=== PATIENT | female | born 1960 | race African-American/Black ===

== ENCOUNTER 2017-12-16 10:56 | Emergency (ER) | payer OTHER, MEDICAID ==
[~2017-12-16] VITALS: Ht 157.5 cm; Wt 81.6 kg
[~2017-12-16 10:56] MED LIST: BENA20TA14; GABA100C9; GLYB5TAB8; LORA-352; METF-370; TRIA0.02
[2017-12-16 14:34] VITALS: BP 149/61
== END 2017-12-16 14:41 | disposition home or self-care (01) ==
LOC: ER 10:56
DX: S93.402A Sprain of unspecified ligament of left ankle, initial encounter (principal); S93.602A Unspecified sprain of left foot, initial encounter; E11.22 Type 2 diabetes mellitus with diabetic chronic kidney disease; E78.5 Hyperlipidemia, unspecified; I12.9 Hypertensive chronic kidney disease with stage 1 through stage 4 chronic kidney disease, or unspecified chronic kidney disease; N18.9 Chronic kidney disease, unspecified; I25.10 Atherosclerotic heart disease of native coronary artery without angina pectoris; F17.210 Nicotine dependence, cigarettes, uncomplicated; Z79.84 Long term (current) use of oral hypoglycemic drugs; Z79.899 Other long term (current) drug therapy; X58.XXXA Exposure to other specified factors, initial encounter; Y93.89 Activity, other specified; Y92.89 Other specified places as the place of occurrence of the external cause; Y99.8 Other external cause status
CPT/HCPCS: 29125; 29515; 73610; 73630

== ENCOUNTER 2024-06-09 17:49 | Inpatient (IN) | payer MEDICAID, OTHER ==
[~2024-06-09] VITALS: Ht 158.8 cm; Wt 97.8 kg
[~2024-06-09 17:49] MED LIST changes: +BENA-36; -BENA20TA14; +GABA-1308; -GABA100C9; -LORA-352; +LORA10TA6
[2024-06-09] MEDS: ONDANSETRON HCL 4 MG/2 ML VIAL IV ONE (18:30)
[2024-06-09] MEDS: SODIUM CHLORIDE 0.9% 500 ML IV ONE (18:30)
[2024-06-09 18:44] VITALS: PULSE 71; RESP 20; O2SAT 94
--- NOTE | 2024-06-09 18:48 | ED.PDOC ---
HPI (NEURO) HPI Comments This is a 64-year-old female who comes to the ED via wheelchair with chief complaint of generalized weakness. She has a past medical history relevant for end-stage renal disease since five years ago likely due to uncontrolled type 2 diabetes diagnosed in 1999, hyperintensity, gout, total thyroidectomy performed 10 years ago, history of six strokes last one was nine months ago, history of a cardiac arrest around four months ago. Patient lives in [place] with her son. She had hemodialysis today with [facility]. Patient just go [facility] one week ago to visit her sister, since then they state that she has been experiencing worsening generalized weakness, lethargy, low appetite, poor fluid intake, she has also been experiencing chest pain, mild severity, localized in the left chest, nonradiating, with no relieving or exacerbating factors. She also mentions having dizziness which is worse with change of positions, as well as lightheadedness, generalized weakness and numbness, sister also stated that she has been having slurred speech and episodes of confusion, blurry vision. Patient is able to answer all of my questions, she states being compliant with her medication and taking Plavix and aspirin on a daily basis. Patient currently denies any abdominal pain, vomiting, diarrhea, constipation. Chief Complaint: General Weakness Time Seen by MD: 18:22 Primary Care Provider: OUT OF AREA Reviewed Notes: Nurses Notes Information Source: Patient, Relative (Sibling) Mode of Arrival: Wheelchair Severity: Severe Dizziness/Weakness Severity: Unable to do activities Headache Severity: Moderate Timing: Days Duration: Since onset Headache Quality: Throbbing Headache Location: Generalized Weakness Location: Generalized Numbness Location: Generalized Onset: At rest, With light exertion Symptoms: Faintness, Vertigo, Imbalance, Weakness, Numbness, Change of vision, Slurred speech History of: CVA, DM, Hypertension Associated Signs and Symptoms: Headache, Nausea, Chest Pain, Altered Mental Status Past Medical History PAST MEDICAL HISTORY: CAD, CKF, CVA, DM, ESRD, High Lipids, HTN Surgical History: , Tonsillectomy Surgical History (Other): Last angiogram with stent placement was performed on 04/28/2024 VARNISH MAKER HELPER History: No Pertinent VARNISH MAKER HELPER History Family History Family History: No family hx of Cancer, No family hx of DM, No family hx of Heart jana, No family hx of HTN Social History Smoker: Cigarettes, Greater Than 1 Pack/Day Alcohol: Occasionally Drugs: Denies Drug Use Lives In: Home Constitutional: reports: fatigue, malaise, weakness; denies: chills, diaphoresis, fever, sweats, others EENTM: reports: blurred vision; denies: double vision, ear bleeding, ear discharge, ear drainage, ear pain, ear ringing, eye pain, eye redness, hearing loss, mouth pain, mouth swelling, nasal discharge, nose bleeding, nose congestion, nose pain, photophobia, tearing, throat pain, throat swelling, voice changes, others Respiratory: reports: SOB with excertion; denies: cough, hemoptysis, orthopnea, SOB at rest, shortness of breath, stridor, wheezing, others Cardiovascular: reports: chest pain, Dyspnea on exertion, lightheadedness; denies: dizzy spells, diaphoresis, edema, irregular heart beat, left arm pain, palpitations, PND, syncope, others Gastrointestinal: reports: poor appetite, poor fluid intake; denies: abdomen distended, abdominal pain, blood streaked bowels, constipated, diarrhea, dysphagia, difficulty swallowing, hematemesis, melena, nausea, rectal bleeding, rectal pain, vomiting, others Genitourinary: denies: abnormal vagina bleeding, burning, dyspareunia, dysuria, flank pain, frequency, hematuria, incontinence, pain, , vagina di scharge, urgency, others Neurological: reports: dizziness, fainting, headache, left sided numbness, right sided numbness, speech problems, weakness; denies: left sided weakness, numbness, paresthesia, pre-existing deficit, right sided weakness, seizure, tingling, tremors, others Musculoskeletal: reports: back pain; denies: gout, joint pain, joint swelling, muscle pain, muscle stiffness, neck pain, others Integumetry: denies: bruises, change in color, change in hair/nails, dryness, laceration, lesions, lumps, rash, wounds, others Allergic/Immunocompromised: denies: Difficulty Healing, Frequent Infections, Hives, Itching, others Hematologic/Lymphatic: denies: anemia, blood clots, easy bleeding, easy bruising, swollen glands, others Endocrine: denies: excessive hunger, excessive sweating, excessive thirst, excessive urination, flushing, intolerance to cold, intolerance to heat, unexplained weight gain, unexplained weight loss, others Psychiatric: reports: anxiety; denies: bipolar disorder, depression, hopeless, panic disorder, schizophrenia, sleepless, suicidal, others Physical Exam General Appearance: Obese, Severe Distress HEENT: Normal ENT Inspection, Pharynx Normal, TMs Normal Neck: Full Range of Motion, Non-Tender, Normal, Normal Inspection Respiratory: Chest Non-Tender, Lungs Clear, No Accessory Muscle Use, No Respiratory Distress, Normal Breath Sounds Cardiovascular: No Edema, No JVD, No Murmur, No Gallop, Normal Peripheral Pul ses, Regular Rate/Rhythm Breast Exam: Deferred Gastrointestinal: No Organomegaly, Non Tender, No Pulsatile Mass, Normal Bowel Sounds, Soft Genitalia: Deferred Pelvic: Deferred Rectal: Deferred Extremities: No calf tenderness, Normal capillary refill, Normal inspection, Normal range of motion, Non-tender, Pedal edema Neurologic: shop mechanic II-XII nml as Tested, Disoriented, Dizziness, Fainting, Headache, Motor Weakness, Normal Affect, Normal Mood, No Sensory Deficits, R/L Numbness, Speech Problem Cerebellar Function: NOT DONE Reflexes: NOT DONE Skin: Dry, Normal Color, Warm Lymphatic: No Adenopathy Was a procedure done? Was a procedure done?: No Differential Diagnosis (SZ) CVA: CVA, Electrolyte Imbalance, Encephalopathy, TIA General Weakness: Dehydration, Myocardial infarction, Renal failure, Vertigo: central, Vertigo: peripheral X-Ray, Labs, Meds, VS Vital Signs Date Time Temp Pulse Resp B/P (MAP) Pulse Ox O2 Delivery O2 Flow Rate FiO2 06/09/24 18:44 71 20 94 Room Air* 0 21 06/09/24 18:42 98.7 71 20 107/44 (65) 93 98.7 06/09/24 18:25 69 06/09/24 18:05 72 06/09/24 17:52 98.3 73 20 87/35 (52) 99 89/39 (56) Lab Test 06/09/24 19:22 06/09/24 17:58 Range/Units White Blood Count 5.8 4.4-10.8 10^3/uL Red Blood Count 2.02 L 4.0-5.20 10^6/uL Hemoglobin 5.7 *L 12.2-16.2 g/dL Hematocrit 17.6 L 36.0-46.0 % Mean Corpuscular Volume 87.1 80.0-100.0 fL Mean Corpuscular Hemoglobin 28.2 28.0-32.0 pg Mean Corpuscular Hemoglobin Concent 32.3 32.0-36.0 g/dL Red Cell Distribution Width 17.7 H 11.8-14.3 % Platelet Count 202 140-450 10^3/uL Mean Platelet Volume 7.6 6.9-10.8 fL Neutrophils (%) (Auto) 65.1 37.0-80.0 % Lymphocytes (%) (Auto) 15.9 10.0-50.0 % Monocytes (%) (Auto) 6.9 0.0-12.0 % Eosinophils (%) (Auto) 11.5 H 0.0-7.0 % Basophils (%) (Auto) 0.6 0.0-2.0 % Neutrophils # (Auto) 3.8 1.6-8.6 10 ^3/uL Lymphocytes # (Auto) 0.9 0.4-5.4 10 ^3/uL Monocytes # (Auto) 0.4 0-1.3 10 ^3/uL Eosinophils # (Auto) 0.7 0-0.8 10 ^3/uL Basophils # (Auto) 0 0-0.2 10 ^3/uL Nucleated Red Blood Cells 0.0 % Sodium Level Pending Potassium Level Pending Chloride Level Pending Carbon Dioxide Level Pending Anion Gap Pending Blood Urea Nitrogen Pending Creatinine Pending Glomerular Filtration Rate Calc Pending BUN/Creatinine Ratio Pending Serum Glucose Pending Calcium Level Pending Troponin I High Sensitivity Pending POC Glucose 179 H 70-106 mg/dl Current Medications Medications (Trade) Dose Ordered Sig/Hilary Route Start Time Stop Time Status Last Admin Sodium Chloride 500 ml @ 500 mls/hr Q1H ONCE IV 06/09/24 18:30 06/09/24 19:29 DC 06/09/24 18:30 Ondansetron HCl (Zofran) 4 mg ONCE ONCE IV 06/09/24 18:30 06/09/24 18:31 DC 06/09/24 18:30 On my initial examination, patient appears to be in severe distress due to generalized weakness, her blood pressure is 87/35 with a map of 52, she is experiencing chest pain, headaches, slurred speech, fluctuations in mentation. We will order CBC, BNP, UA, head CT, chest x-ray, troponins, EKG. We will also prescribe Zofran, IV fluids with NS at 500 bolus, we will continue to reassess. Patient's hemoglobin came back at 5.6, we ordered 2 units of RBC packs, patient will be admitted to for further management and monitoring. Images Reviewed?: Images reviewed and evaluated by me Time of 1ST Reevaluation: 18:37 Reevaluation 1ST: Unchanged Patient Education/Counseling: Diagnosis, Treatment Family Education/Counseling: Diagnosis, Treatment Departure 1 Departure Time of Disposition: 19:50 Impression: Primary Impression: Severe anemia Additional Impressions: CVA (cerebrovascular accident) TIA (transient ischemic attack) ACS (acute coronary syndrome) ESRD (end stage renal disease) on dialysis Type 2 diabetes mellitus Essential hypertension Hypothyroidism Hyperlipidemia Disposition: ADMITTED INPATIENT Condition: Guarded Critical Care Note Critical Care Time?: No Stability Stability form required: No Heart Score Heart Score: Heart Score Response (Comments) Value History Moderate Suspicious 1 EKG Repolarization Disturb 1 Age >65 2 Risk Factors >3 or Hx ASHD 2 Troponin N/A 0 Total 6 EDWIN GIL RESIDENT Jun 09, 2024 18:48
[2024-06-09 19:15] VITALS: RESP 20; O2SAT 94
--- NOTE | 2024-06-09 19:17 | DVH ---
CHEST RADIOGRAPH Indication:sob Technique: Single frontal view of the chest was obtained Comparison: None FINDINGS: Lines and Tubes: None Lungs: No focal consolidation. Mild interstitial prominence. Suture material is noted over the right lower lung zone. Indistinctness of bilateral hemidiaphragm. Pleura: No effusion. No pneumothorax. Cardiomediastinal contours: Mild cardiomegaly. Bones: No acute osseous abnormality. Chronic resorption of the right distal clavicle. Surgical clips are noted over the right lower neck. IMPRESSION: Mild cardiomegaly with pulmonary vascular congestion and possible trace bilateral pleural effusions.
[2024-06-09 19:40] LABS: Basophils # (auto) 0 10 ^3/uL (0-0.2); Eosinophils # (auto) 0.7 10 ^3/uL (0-0.8); Hematocrit 17.6 % (36.0-46.0); Lymphocytes # (auto) 0.9 10 ^3/uL (0.4-5.4); Monocytes # (auto) 0.4 10 ^3/uL (0-1.3); Red Blood Cells 2.02 10^6/uL (4.0-5.20)
[2024-06-09 19:41] LABS: Basophils % (auto) 0.6 % (0.0-2.0); Eosinophils % (auto) 11.5 % (0.0-7.0); Lymphocytes % (auto) 15.9 % (10.0-50.0); Mean Corpuscular Hemoglobin 28.2 pg (28.0-32.0); Mean Corpuscular Hgb Conc. 32.3 g/dL (32.0-36.0); Mean Corpuscular Volume 87.1 fL (80.0-100.0); Monocytes % (auto) 6.9 % (0.0-12.0); Neutrophils # (auto) 3.8 10 ^3/uL (1.6-8.6); Neutrophils % (auto) 65.1 % (37.0-80.0); Platelet Count (auto) 202 10^3/uL (140-450); Red Cell Distribution Width 17.7 % (11.8-14.3); White Blood Cell 5.8 10^3/uL (4.4-10.8)
[2024-06-09 19:45] LABS: Hemoglobin 5.7 g/dL (12.2-16.2)
[2024-06-09 20:03] LABS: Chloride 96 mmol/L (98-107); Potassium 3.8 mmol/L (3.5-5.1); Sodium 136 mmol/L (136-145)
[2024-06-09 20:04] LABS: Anion Gap 7 (5-15); Carbon Dioxide 33 mmol/L (20-31)
[2024-06-09 20:05] LABS: Calcium 9.4 mg/dL (8.7-10.4)
[2024-06-09 20:09] LABS: BUN/Creatinine Ratio 3.8 (10.0-20.0); Blood Urea Nitrogen 20 mg/dL (9-23); Glucose 155 mg/dL (74-106)
--- NOTE | 2024-06-09 21:07 | DVH ---
EXAM: CT HEAD WITHOUT CONTRAST INDICATION: ams, slurred speech TECHNIQUE: CT of the head without intravenous contrast. Radiation Dose Information: CT Dose: CTDI volume is 58.08 mGy. Dose-length product is 930.95 mGy*cm The dose indicators for CT are the volume Computed Tomography (CT) Dose Index (CTDIvol) and the Dose Length Product (DLP), and are measured in units of mGy and mGy-cm, respectively. These indicators are not patient dose, but values generated from the CT scanner acquisition factors. The report includes radiation exposure data for exposures received during this examination. COMPARISON: None FINDINGS: There is no evidence of acute intracranial hemorrhage, extra-axial collection, mass effect, midline s hift, herniation or hydrocephalus. 8.24 mm dural-based calcification posterior right parietal lobe. Can not exclude small meningioma. The ventricles, sulci and cisterns are age appropriate. The chavez-white differentiation is intact. Patchy periventricular and subcortical white matter hypoattenuation is nonspecific but may be related to small vessel ischemic disease. The visualized paranasal sinuses and mastoid air cells are clear. The surrounding soft tissues and osseous structures are unremarkable. IMPRESSION: 1. No acute intracranial hemorrhage. 2. Small 8.24 mm dural based calcification posterior right parietal lobe. May represent a small granu boy or dural-based meningioma.
[2024-06-09] MEDS ORDERED: ACETAMINOPHEN 325 MG TAB PO PRN (21:45)
[2024-06-09] MEDS ORDERED: HYDROcodone-ACET 5/325MG TAB PO PRN (21:45)
[2024-06-09] MEDS ORDERED: NITROGLYCERIN 0.4 MG SL TAB SL PRN (21:45)
[2024-06-09] MEDS ORDERED: ONDANSETRON HCL 4 MG/2 ML VIAL IV PRN (21:45)
--- NOTE | 2024-06-09 22:12 | DVHHPRES ---
History of Present Illness Resident Creating Document: AMNA COOPER RESIDENT History of Present Illness This is a 64-year-old female past medical history of hypertension, hyperlipidemia, CAD with s/p PTCA, CKD on hemodialysis, type 2 diabetes mellitus, CHF, gout, hypothyroidism, rt upper extremity DVT presented to the ED via wheelchair with chief complaint of generalized weakness and nausea for 4 days prior to this admission. According to the patient she has been having black tarry stool for last 2 days, also noticed fresh blood in her stool 3 or 4 times and today she has 3 bowel movement which is black and semisolid in consistency. She has a past medical history relevant for end-stage renal disease since five years ago likely due to uncontrolled type 2 diabetes diagnosed in 1999, gout, total thyroidectomy performed 10 years ago, history of six strokes last one was nine months ago, history of a cardiac arrest around four months ago and Left heart catheterization with 1 stent in May 01, 2024 and was on was continuing aspirin and Plavix since then. Patient lives in [place] with her son. She had hemodialysis today with [facility]. Patient [facility] one week ago to visit her sister, since then she has been experiencing worsening generalized weakness, lethargy, low appetite, poor fluid intake, she has also been experiencing chest pain, sharp in nature 4/10, localized in the left chest, nonradiating, with no relieving or exacerbating factors. She also mentions having dizziness which is worse with change of positions, as well as lightheadedness, generalized weakness and numbness, sister also stated that she has been having slurred speech and episodes of confusion, blurry vision. Patient currently denies any abdominal pain, vomiting, diarrhea, constipation. PCP: Radhika Waldron Coat Finisher: Dr. Varghese in [place] Building Mover: Antwan Zambrano in [facility] [place] Cardiovascular: HTN, hyperipidemia Past Medical History Hypertension, hyperlipidemia, CAD with s/p PTCA, CKD on hemodialysis, type 2 diabetes mellitus, CHF, gout, hypothyroidism, rt upper extremity DVT Past Surgical History PTCA, frequent surgery in the upper extremity for AV fistula -13 times Family History: None Smoke: No ALCOHOL: none Drugs: None Lives: with Family Review of Systems Constitutional: Yes: Weakness; No: Fever, Chills, Sweats, Malaise, Other Eyes: No: Pain, Vision change, Conjunctivae inflammation, Eyelid inflammation, Other, Redness ENT: No: Ear pain, Ear discharge, Nose pain, Nose discharge, Nose congestion, Mouth pain, Mouth swelling, Throat pain, Throat swelling, Other Respiratory: Shortness of breath; No: Cough, Dry, SOB with excertion, Wheezing, Hemoptysis, Pleuritic Pain, Sputum, Wheezing, Other Cardiovascular: Chest Pain Gastrointestinal: Nausea, Diarrhea, Melena, Hematochezia Genitourinary: No Dysuria, No Frequency, No Incontinence, No Hematuria, No Retention, No Other Musculoskeletal: No: other, neck pain, shoulder pain, arm pain, back pain, hand pain, leg pain, foot pain Skin: No: Rash, Lesions, Jaundice, Bruising, Other Neurological: No: Weakness, Numbness, Incoordination, Change in speech, Confusion, Seizures, Other Allergies: Coded Allergies: NO KNOWN ALLERGIES (Unverified , 07/30/11) Medications Current Medications Medications Dose Ordered Sig/Hilary Route Start Time Stop Time Status Last Admin Dose Admin Acetaminophen 325 mg Q4HP PRN PO 06/09/24 21:45 UNV Acetaminophen/ Hydrocodone Bitart 1 tab Q4HP PRN PO 06/09/24 21:45 UNV Ondansetron HCl 4 mg Q4HP PRN IV 06/09/24 21:45 UNV Nitroglycerin 0.4 mg Q5MINP PRN SL 06/09/24 21:45 UNV Morphine Sulfate 2 mg Q30M PRN IV 06/09/24 21:45 UNV Exam Vital Signs Vital Signs Date Time Temp Pulse Resp B/P (MAP) Pulse Ox O2 Delivery O2 Flow Rate FiO2 06/09/24 20:01 65 06/09/24 20:00 98.6 20 125/42 (69) 93 98.6 06/09/24 19:15 Room Air* 0 21 General Appearance: Alert, Oriented X3, Cooperative, mild distress HEENT: Atraumatic, PERRLA, EOMI, Mucous membr. moist/pink Respiratory: Clear to auscultation, Normal air movement Cardiovascular: Regular rate, Normal S1, Normal S2, No murmurs Abdominal: Normal bowel sounds, Soft, No tenderness, No hepatospenomegaly, No masses Extremities: No clubbing, No cyanosis, No edema, Normal pulses, No tenderness/swelling Skin: No rashes, No breakdown, No significant lesion Neuro: Normal speech, Strength at 5/5 X4 ext, Normal tone, Sensation intact Psych/Mental Status: Mental status NL, Mood NL Labs/Xrays Labs Test 06/09/24 20:49 06/09/24 19:22 06/09/24 17:58 Range/Units Troponin I High Sensitivity 7 </=34 ng/L White Blood Count 5.8 4.4-10.8 10^3/uL Red Blood Count 2.02 L 4.0-5.20 10^6/uL Hemoglobin 5.7 *L 12.2-16.2 g/dL Hematocrit 17.6 L 36.0-46.0 % Mean Corpuscular Volume 87.1 80.0-100.0 fL Mean Corpuscular Hemoglobin 28.2 28.0-32.0 pg Mean Corpuscular Hemoglobin Concent 32.3 32.0-36.0 g/dL Red Cell Distribution Width 17.7 H 11.8-14.3 % Platelet Count 202 140-450 10^3/uL Mean Platelet Volume 7.6 6.9-10.8 fL Neutrophils (%) (Auto) 65.1 37.0-80.0 % Lymphocytes (%) (Auto) 15.9 10.0-50.0 % Monocytes (%) (Auto) 6.9 0.0-12.0 % Eosinophils (%) (Auto) 11.5 H 0.0-7.0 % Basophils (%) (Auto) 0.6 0.0-2.0 % Neutrophils # (Auto) 3.8 1.6-8.6 10 ^3/uL Lymphocytes # (Auto) 0.9 0.4-5.4 10 ^3/uL Monocytes # (Auto) 0.4 0-1.3 10 ^3/uL Eosinophils # (Auto) 0.7 0-0.8 10 ^3/uL Basophils # (Auto) 0 0-0.2 10 ^3/uL Nucleated Red Blood Cells 0.0 % Sodium Level 136 136-145 mmol/L Potassium Level 3.8 3.5-5.1 mmol/L Chloride Level 96 L 98-107 mmol/L Carbon Dioxide Level 33 H 20-31 mmol/L Anion Gap 7 5-15 Blood Urea Nitrogen 20 9-23 mg/dL Creatinine 5.29 H 0.550-1.02 mg/dL Glomerular Filtration Rate Calc 8 >90 mL/min BUN/Creatinine Ratio 3.8 L 10.0-20.0 Serum Glucose 155 H 74-106 mg/dL Calcium Level 9.4 8.7-10.4 mg/dL POC Glucose 179 H 70-106 mg/dl Assessment/Plan Assessment/Plan Assessment and plan: # Generalized weakness likely due to severe anemia - On admission hemoglobin was 5.7 - Ordered 2 units PRBC - Monitor H/H # Severe anemia likely due to lower GI bleeding - On D/R/E no visible blood is seen and hard black stool in the rectum - ordered CT abdomen pelvis without contrast and FOBT - Patient is NPO - IV Protonix 40 mg b.i.d. - IV normal saline at 60 mL/hour - consulted GI # ESRD on hemodialysis - started hemodialysis 5 years ago and 3 times a week - consulted nephrology [facility] - Monitor BMP # History of coronary artery disease with status post PTCA 6 weeks ago - Continue aspirin and Plavix # History of gout - Continue home meds # Possible subclinical hyperthyroidism - ordered free T3 and T4 Goal of care discussed with the patient for more than 20 minutes full code Plan of treatment discussed with Dr. Juan Plan discussed with: Patient, Other My Orders Orders - AMNA COOPER RESIDENT Procedure Category Date Status Time Admit ADMIT 06/09/24 Transmitted 21:35 Allergies GRECIA 06/09/24 In Process 21:35 Code Status CODE 06/09/24 Transmitted 21:35 Renal DIET 06/10/24 Transmitted Standard(2gna,3gk,Lopho) Breakfast Oxygen Per Hour RT 06/09/24 Transmitted 21:35 Acetaminophen Tablet PHA 06/09/24 In Process (Tylenol Tablet) 21:45 Hydrocodone-Acet PHA 06/09/24 In Process 5/325mg Tab (Ferguson 21:45 Ondansetron Hcl PHA 06/09/24 In Process (Zofran) 21:45 Complete Blood Count LAB 06/10/24 Verified 04:00 Comprehensive LAB 06/10/24 Verified Metabolic Panel 04:00 Pt Request For Service PT 06/09/24 Logged 21:35 Nitroglycerin PHA 06/09/24 In Process Sublingual (Ntrostat 21:45 Morphine Sulfate PHA 06/09/24 In Process Injection 21:45 Oxygen By Nasal RT 06/09/24 Transmitted Cannula 21:35 Stat Ekg For Chest GRECIA 06/09/24 In Process Pain 21:35 Notify Of Changes GRECIA 06/09/24 In Process From Base 21:35 Forming Tube Selector For [facility] 06/09/24 In Process 24 Hours 21:35 Emergency Dysrhythmia [facility] 06/09/24 In Process Protocol 21:35 Rhythm Strips Once GRECIA 06/09/24 In Process Every Shift 21:35 Packedcells -Active BBK 06/09/24 Logged Bleeding 22:02 B-Type Natriuretic LAB 06/09/24 Logged Peptide 22:07 Hemoglobin A1c LAB 06/09/24 Logged 22:07 Thyroid Stimulating LAB 06/09/24 Logged Hormone 22:07 Vitamin B12 LAB 06/09/24 Logged 22:07 Vitamin D, 25-Hydroxy LAB 06/09/24 Logged 22:07 Echo 2d Mode Cardiac US 06/09/24 Logged DOP 22:07 Stool Wbc LAB 06/09/24 Transmitted 22:10 Stool Bacterial JOSHUA 06/09/24 Uncollected Culture 22:10 Stool Occult Blood LAB 06/09/24 Transmitted 22:10 Clostridium Difficile JOSHUA 06/09/24 Uncollected Toxin 22:10 Date of Service: Jun 09, 2024 Billing Provider: KEM JUAN MD Common Visit Codes: 90854-[id number] INP/OBS CARE (HIGH) Secondary Visit Codes: 83359-[id number] CARE PLAN 30 MINUTES AMNA COOPER RESIDENT Jun 09, 2024 22:12 KEM JUAN MD Jun 10, 2024 08:59
[2024-06-10] VITALS (16 sets, daily range): BP systolic 92–137; BP diastolic 42–72; PULSE 60–83; RESP 14–21; TEMP 97.7–98.7; O2SAT 95–100
[2024-06-10 00:20] LABS: INR 1.08 (0.9-1.15); Partial Thromboplastin Time 23.9 SEC (24.5-34.5); Prothrombin Time 11.4 sec (9.3-11.8)
[2024-06-10] MEDS: SODIUM CHLORIDE 0.9% 1,000 ML IV SCH (01:30)
[2024-06-10] MEDS: PANTOPRAZOLE 40 MG/10 ML VIAL INJ IV ONE (02:01)
--- NOTE | 2024-06-10 09:09 | ECG ---
[facility] Test Date: 2024-06-09 Test Time: 18:05:02 Pat Name: KAMILA ROMERO Department: ER Room: 0292T Gender: F Compounder Helper: POOJA : 1960 Requested By: EDWIN DE LOS SANTOS Order Number: [id number] Reading MD: Adams Acharya Measurements Intervals [place] Rate: 72 P: 55 NM: 159 QRS: 45 QRSD: 100 T: 38 QT: 427 QTc: 468 Interpretive Statements Sinus rhythm Paired ventricular premature complexes Low voltage, precordial leads Electronically Signed On 06-11-2024 14:55:50 PDT by Adams Acharya Please click the below link to view image of tracing.
[2024-06-10] MEDS: PANTOPRAZOLE 40 MG/10 ML VIAL INJ IV SCH (09:42)
[2024-06-10] MEDS: ASPirin 81 mg TAB PO ONE (09:42)
--- NOTE | 2024-06-10 09:54 | DVH ---
CT ABDOMEN AND PELVIS WITHOUT CONTRAST CLINICAL HISTORY: possible lower GI bleeding TECHNIQUE: Multidetector CT of the abdomen was performed from lung bases to pubic symphysis. Imaging was performed without IV contrast. Axial, coronal and sagittal multiplanar reformats were obtained fr om the axial data set by the technologist. Radiation optimization: All CT scans at this facility use at least one of these dose optimization ran hniques: automated exposure control mA and/or kV adjustment per patient size (includes targeted exam s where dose is matched to clinical indication) or iterative reconstruction. Radiation Dose Information: CT Dose: CTDI volume is 23.67 mGy. Dose-length product is 1350.05 mGy*cm Comparison: None FINDINGS: Evaluation of the abdominal viscera is limited without intravenous contrast. There are several nonspecific subtle hypodense splenic nodules measuring 1.2 cm and 1.5 cm. The live r, gallbladder, pancreas, kidneys, adrenal glands, appear within normal limits. There is no gross evidence of abdominal lymphadenopathy. There is no free fluid or free air. The small and large bowel loops demonstrate normal caliber. There are no pericolonic inflammatory ch anges. Normal appearing appendix is seen in the right lower quadrant abdomen. There is a small hiatal hernia. The stomach otherwise appears grossly unremarkable. There are calcified atherosclerotic changes in the abdominal aorta. The IVC appears within normal li mits. The bladder appears unremarkable. The uterus appears within normal limits. There is no evidence of a pelvic mass or lymphadenopathy. There is no free fluid collection. There is pleural-parenchymal scarring in the bilateral lung bases. There is no acute osseous abnormality. IMPRESSION: 1. There is no acute process in the abdomen and pelvis.. 2. Several nonspecific subtle hypodense splenic nodules measuring up to 1.5 cm. Further evaluation wi th MRI abdomen with contrast is recommended. 3. Small hiatal hernia. HS:Y
--- NOTE | 2024-06-10 10:42 | DVHINCON2 ---
GI Consult Consult Note GI consult note Date of Consultation: 06/10/2024 Chief Complaint: Severe anemia Referring Physician: Dr. Deras H&P: 64-year-old female admitted with generalized weakness dizziness and confusion. Patient lives in [place] and visiting her sister here Patient complains of periumbilical abdominal pain. Patient has nausea, no vomiting Patient has history of GERD, takes Tums as needed. No EGD in past Status post colonoscopy more than 10 years ago Patient takes Plavix and aspirin, last dose yesterday Patient is status post 2 units PRBCs transfused Past Medical History: CAD, CKF, CVA, DM, ESRD, High Lipids, HTN Past Surgical History: , Tonsillectomy Last angiogram with stent placement was performed on 04/28/2024 Social History: Smoker: Cigarettes, Greater Than 1 Pack/Day Alcohol: Occasionally Drugs: Denies Drug Use Lives In: Home Family History: Noncontributory Review of Systems: Constitutional: no fever, chill, weight loss HEENT: no eye pain, no hearing loss, no oral lesion, no scleral icterus Heart: no chest pain, no chest pressure Lung: no cough, no dyspnea with exertion Abdomen: see HPI Physical exam: General: NAD, AAOX3 Chest: lung oleary clear to auscultation Heart: RRR, no murmur Abdomen: Mild tenderness to palpation, +BS Labs: Labs Test 06/09/24 23:20 06/09/24 22:32 06/09/24 19:22 06/09/24 17:58 Range/Units Prothrombin Time 11.4 9.3-11.8 sec Prothrombin Time INR 1.08 0.9-1.15 Activated Partial Thromboplast Time 23.9 L 24.5-34.5 SEC Troponin I High Sensitivity 8 </=34 ng/L Vitamin B12 Level 529 211-911 pg/mL Vitamin D 25-Hydroxy 43.8 30.0-100 ng/mL Thyroid Stimulating Hormone (TSH) 0.27 L 0.55-4.78 uIU/mL Stool Occult Blood Positive Negative Stool Occult Blood Sample #3 Negative Stool for White Cells None seen White Blood Count 5.8 4.4-10.8 10^3/uL Red Blood Count 2.02 L 4.0-5.20 10^6/uL Hemoglobin 5.7 *L 12.2-16.2 g/dL Hematocrit 17.6 L 36.0-46.0 % Mean Corpuscular Volume 87.1 80.0-100.0 fL Mean Corpuscular Hemoglobin 28.2 28.0-32.0 pg Mean Corpuscular Hemoglobin Concent 32.3 32.0-36.0 g/dL Red Cell Distribution Width 17.7 H 11.8-14.3 % Platelet Count 202 140-450 10^3/uL Mean Platelet Volume 7.6 6.9-10.8 fL Neutrophils (%) (Auto) 65.1 37.0-80.0 % Lymphocytes (%) (Auto) 15.9 10.0-50.0 % Monocytes (%) (Auto) 6.9 0.0-12.0 % Eosinophils (%) (Auto) 11.5 H 0.0-7.0 % Basophils (%) (Auto) 0.6 0.0-2.0 % Neutrophils # (Auto) 3.8 1.6-8.6 10 ^3/uL Lymphocytes # (Auto) 0.9 0.4-5.4 10 ^3/uL Monocytes # (Auto) 0.4 0-1.3 10 ^3/uL Eosinophils # (Auto) 0.7 0-0.8 10 ^3/uL Basophils # (Auto) 0 0-0.2 10 ^3/uL Nucleated Red Blood Cells 0.0 % Sodium Level 136 136-145 mmol/L Potassium Level 3.8 3.5-5.1 mmol/L Chloride Level 96 L 98-107 mmol/L Carbon Dioxide Level 33 H 20-31 mmol/L Anion Gap 7 5-15 Blood Urea Nitrogen 20 9-23 mg/dL Creatinine 5.29 H 0.550-1.02 mg/dL Glomerular Filtration Rate Calc 8 >90 mL/min BUN/Creatinine Ratio 3.8 L 10.0-20.0 Serum Glucose 155 H 74-106 mg/dL Hemoglobin A1c < 4.0 <5.7 % A1C Calcium Level 9.4 8.7-10.4 mg/dL B-Type Natriuretic Peptide 152.56 0-100 pg/mL POC Glucose 179 H 70-106 mg/dl Imaging: CT abdomen pelvis IMPRESSION: 1. There is no acute process in the abdomen and pelvis.. 2. Several nonspecific subtle hypodense splenic nodules measuring up to 1.5 cm. Further evaluation with MRI abdomen with contrast is recommended. 3. Small hiatal hernia. Assessment: Severe anemia GI bleed possible Abdominal pain History of GERD Hiatal hernia Plan: Discussed with Dr. Brizuela CBC is pending Transfuse if hemoglobin less than seven Continue Protonix and Zofran Clear liquid diet, advance to full liquid if tolerating Possible plan for EGD in 24-48 hours, Dr. Brizuela on standby if active bleeding Discussed plan with patient, sister at bedside and RN Thank you for this consult Date of Service: Jun 10, 2024 Billing Provider: MUKESH HARVEY Common Visit Codes: CONSULT ONLY Consultation Codes: [id number] CONSULT <60MIN MUKESH HARVEY Jun 10, 2024 10:41
[2024-06-10 11:48] LABS: Basophils # (auto) 0 10 ^3/uL (0-0.2); Basophils % (auto) 0.6 % (0.0-2.0); Eosinophils # (auto) 0.7 10 ^3/uL (0-0.8); Eosinophils % (auto) 12.3 % (0.0-7.0); Hematocrit 27.8 % (36.0-46.0); Hemoglobin 9.3 g/dL (12.2-16.2); Lymphocytes # (auto) 0.9 10 ^3/uL (0.4-5.4); Lymphocytes % (auto) 14.8 % (10.0-50.0); Mean Corpuscular Hemoglobin 28.6 pg (28.0-32.0); Mean Corpuscular Hgb Conc. 33.3 g/dL (32.0-36.0); Mean Corpuscular Volume 85.9 fL (80.0-100.0); Monocytes # (auto) 0.4 10 ^3/uL (0-1.3); Monocytes % (auto) 6.1 % (0.0-12.0); Neutrophils % (auto) 66.2 % (37.0-80.0); Nucleated Red Blood Cells % 0.1 %; Platelet Count (auto) 179 10^3/uL (140-450); Red Blood Cells 3.24 10^6/uL (4.0-5.20); Red Cell Distribution Width 18.7 % (11.8-14.3); White Blood Cell 6.1 10^3/uL (4.4-10.8)
[2024-06-10 12:19] LABS: Alanine Aminotransferase 11 U/L (7-40); Albumin 3.9 g/dL (3.2-4.8); Alkaline Phosphatase 60 U/L (46-116); Anion Gap 6 (5-15); Aspartate Aminotransferase 12 U/L (13-40); BUN/Creatinine Ratio 3.7 (10.0-20.0); Bilirubin, Total 0.5 mg/dL (0.2-1.0); Blood Urea Nitrogen 23 mg/dL (9-23); Calcium 9.3 mg/dL (8.7-10.4); Carbon Dioxide 33 mmol/L (20-31); Chloride 99 mmol/L (98-107); Free T3 1.83 pg/mL (2.3-4.2); Free T4 (Free Thyroxine) 0.97 ng/dL (0.89-1.76); Glucose 129 mg/dL (74-106); Potassium 4.3 mmol/L (3.5-5.1); Sodium 138 mmol/L (136-145); Total Protein 6.2 g/dL (5.7-8.2)
--- NOTE | 2024-06-10 16:13 | DVHINCON2 ---
Date Seen: Jun 10, 2024 Referring Physician MD Sterling Reason for Consultation CAD s/p PTCA, GI bleed History of Present Illness This is a 64 year-old female who presented to the Emergency Room with a chief complain of generalized weakness. Complains of generalized weakness associated with dizziness, some ALOC, periumbilical pain with a lower GI bleed. She is visiting her sister from [place]. Reports undergoing a cardiac catheterization and coronary angiogram status PTCA with stent placement x 1 MARLENA at [facility] in [place], [place] on 04/28/2024. She has been on dual- antiplatelet therapy since with latest intake on 06/10/2024. Follows-up with primary fashion intern, Dr. Zambrano, with last appointment being two weeks ago. A twelve-lead electrocardiogram revealed a sinus rhythm with PVCs. Significant medical history includes coronary artery disease status post PTCA with stent placement x 1DES, insulin dependent diabetes mellitus, end-stage renal disease on hemodialysis, history of CVA/TIA, hypertension, dyslipidemia, thyroid d isease, peripheral neuropathy, hiatal hernia, and morbid obesity. Past Medical History Past medical history reviewed. No other significant than mentioned above. Past Surgical History PTCA with a stent placement x1 MARLENA Right upper arm AV fistula Tonsillectomy Family History Family history reviewed. Social History Denies the use of illicit drugs, alcohol, or tobacco use. Allergies: Coded Allergies: NO KNOWN ALLERGIES (Unverified , 07/30/11) Home Meds Reported Medications [[id number] Mg] (Gabapentin) 100 MG CAP No Conflict Check, MG 03/31/13 [Benazepril Hcl20 Mg] (Benazepril Hcl) 20 MG TAB No Conflict Check, MG 03/31/13 [Metformin Bqg102 Mg] (Metformin Hcl) 500 MG TAB No Conflict Check, MG 03/31/13 [Glyburide5 Mg] (Glyburide) 5 MG TAB No Conflict Check, MG 03/31/13 [Triamcinolone0.025 %] (Triamcinolone Acetonide) 0.025 % CRE No Conflict Check, % 03/31/13 [Daxwkngbxn06 Mg] (Loratadine) 10 MG TAB No Conflict Check, MG 03/31/13 Home Meds Home medications reviewed. Current Medications Current Medications Medications (Trade) Dose Ordered Sig/Hilary Route PRN Reason Start Time Stop Time Status Last Admin Acetaminophen (Tylenol Tablet) 325 mg Q4HP PRN PO MILD PAIN (1-3 PAIN SCALE) 06/09/24 21:45 Acetaminophen/ Hydrocodone Bitart ([place] 5/325MG Tab) 1 tab Q4HP PRN PO MODERATE PAIN (4-6 PAIN SCALE) 06/09/24 21:45 Ondansetron HCl (Zofran) 4 mg Q4HP PRN IV NAUSEA / VOMITING 06/09/24 21:45 Nitroglycerin (Ntrostat Sublingual) 0.4 mg Q5MINP PRN SL FOR CHEST PAIN 06/09/24 21:45 Morphine Sulfate 2 mg Q30M PRN IV FOR CHEST PAIN 06/09/24 21:45 Sodium Chloride 1,000 ml @ 60 mls/hr [id number] IV 06/10/24 01:30 06/10/24 01:30 Pantoprazole Sodium (Protonix) 40 mg BID IV 06/10/24 10:00 06/10/24 09:42 Aspirin 81 mg DAILY PO 06/11/24 10:00 06/10/24 11:27 DC Review of Systems Constitutional: Generalized weakness Ears, Nose, & Throat: No symptom reported Eyes: No symptom reported Neurological: Disorientation, dizziness Pulmonary/Respiratory: No symptom reported Cardiovascular: No symptom reported Gastrointestinal: Lower GI bleed Genitourinary: No symptom reported Musculoskeletal: No symptom reported Skin: No symptom reported Psychiatric: No symptom reported Endocrine: No symptom reported Hemotologic/Lymphatic: No symptom reported Vital Signs Vital Signs Date Time Temp Pulse Resp B/P (MAP) Pulse Ox O2 Delivery O2 Flow Rate FiO2 06/10/24 12:33 98.1 74 16 120/53 (75) 96 98.1 06/10/24 08:00 Nasal Cannula* 3 32 Physical Exam General Appearance: Cooperative. Well developed. Morbidly obese. In no acute distress Head Exam: Normal inspection Neck Exam: Normal inspection. Non-tender. Normal alignment Pulmonary/Respiratory: Chest non-tender. Crackles to bilateral breath sounds Cardiovascular/Chest: Regular rate and rhythm. S1, S2. Sinus rhythm with PVCs. No murmurs. No JVD. Peripheral Pulses: 2+ Radial (R). 2+ Radial (L). 2+ Pedal (R). 2+ Pedal (L) Abdominal Exam: Normal bowel sounds. Soft. Nontender. No hepatospenomegaly. No masses Ankle Exam: Negative ankle edema Lower extremities: Negative lower extremity edema Neuro/Mental Status: A&O x3. Coherent but very poor historian Thoughts/Psych: Normal thought pattern. Appropriate mood and affect. Good judgement and insight Appearance: In no acute distress Skin Exam: Normal inspection. Pale color. Warm. Dry Labs/Diagnostic Data Labs Test 06/10/24 11:10 06/09/24 23:20 06/09/24 22:32 06/09/24 19:22 Range/Units White Blood Count 6.1 4.4-10.8 10^3/uL Red Blood Count 3.24 L 4.0-5.20 10^6/uL Hemoglobin 9.3 #L 12.2-16.2 g/dL Hematocrit 27.8 #L 36.0-46.0 % Mean Corpuscular Volume 85.9 80.0-100.0 fL Mean Corpuscular Hemoglobin 28.6 28.0-32.0 pg Mean Corpuscular Hemoglobin Concent 33.3 32.0-36.0 g/dL Red Cell Distribution Width 18.7 H 11.8-14.3 % Platelet Count 179 140-450 10^3/uL Mean Platelet Volume 7.5 6.9-10.8 fL Neutrophils (%) (Auto) 66.2 37.0-80.0 % Lymphocytes (%) (Auto) 14.8 10.0-50.0 % Monocytes (%) (Auto) 6.1 0.0-12.0 % Eosinophils (%) (Auto) 12.3 H 0.0-7.0 % Basophils (%) (Auto) 0.6 0.0-2.0 % Neutrophils # (Auto) 4.0 1.6-8.6 10 ^3/uL Lymphocytes # (Auto) 0.9 0.4-5.4 10 ^3/uL Monocytes # (Auto) 0.4 0-1.3 10 ^3/uL Eosinophils # (Auto) 0.7 0-0.8 10 ^3/uL Basophils # (Auto) 0 0-0.2 10 ^3/uL Nucleated Red Blood Cells 0.1 % Sodium Level 138 136-145 mmol/L Potassium Level 4.3 3.5-5.1 mmol/L Chloride Level 99 98-107 mmol/L Carbon Dioxide Level 33 H 20-31 mmol/L Anion Gap 6 5-15 Blood Urea Nitrogen 23 9-23 mg/dL Creatinine 6.15 H 0.550-1.02 mg/dL Glomerular Filtration Rate Calc 7 >90 mL/min BUN/Creatinine Ratio 3.7 L 10.0-20.0 Serum Glucose 129 H 74-106 mg/dL Calcium Level 9.3 8.7-10.4 mg/dL Total Bilirubin 0.5 0.2-1.0 mg/dL Aspartate Amino Transferase (AST) 12 L 13-40 U/L Alanine Aminotransferase (ALT) 11 7-40 U/L Alkaline Phosphatase 60 46-116 U/L Total Protein 6.2 5.7-8.2 g/dL Albumin 3.9 3.2-4.8 g/dL Free Thyroxine (T4) Calculated 0.97 0.89-1.76 ng/dL Free Triiodothyronine (T3) pg/mL 1.83 L 2.3-4.2 pg/mL Prothrombin Time 11.4 9.3-11.8 sec Prothrombin Time INR 1.08 0.9-1.15 Activated Partial Thromboplast Time 23.9 L 24.5-34.5 SEC Troponin I High Sensitivity 8 </=34 ng/L Vitamin B12 Level 529 211-911 pg/mL Vitamin D 25-Hydroxy 43.8 30.0-100 ng/mL Thyroid Stimulating Hormone (TSH) 0.27 L 0.55-4.78 uIU/mL Stool Occult Blood Positive Negative Stool Occult Blood Sample #3 Negative Stool for White Cells None seen Hemoglobin A1c < 4.0 <5.7 % A1C B-Type Natriuretic Peptide 152.56 0-100 pg/mL Test 06/09/24 17:58 Range/Units POC Glucose 179 H 70-106 mg/dl Assessment Acute severe anemia on DAPT & positive FOBT Coronary artery disease status post PTCA x1 MARLENA (04/28/2024) Insulin-dependent diabetes mellitus Hypertension Dyslipidemia Thyroid disease HX of CVA/TIA ESRD on HD Morbid obesity Plan/Recommendation (Dr. Meadows) The patient off dual-antiplatelet or single-antiplatelet therapy is at very high risk for in stent thrombosis/restenosis. Reinitiate DAPT as soon as deemed safe, preferably within three days. Agree with PPI. Continue fluid replacement and maintain hgb level > 8.0 given CAD. The patient is pending further GI work- up at this time. Presents with a twelve-lead electrocardiogram without evident ischemia and negative serial troponin levels placing her as a moderate-risk for invasive GI procedures. We recommend upgrade to telemetry and closely monitoring of EKG changes including them on daily basis. We will continue further cardiac evaluation with a transthoracic echocardiogram. Kindly notify cardiology in the setting of acute chest pain. Obtain medical records from [facility] and Dr. Zambrano. Thank you for allowing us to participate in this patient's care. Please call if you have any questions or concerns. This medical document was created using an electronic medical record system with voice recognition software and computerized dictation system. Although this document has been carefully reviewed, there might still be some phonetic and typographical errors. Occasional wrong-word or ``sound-alike substitutions may have occurred due to the inherent limitations of voice recognition software. These areas are purely typographical due to imperfections of the software programs and do not reflect any compromise in the patient's medical care. Please read the chart carefully and recognize, using context, where these substitutions have occurred. Plan discussed with: Patient, Other Date of Service: Jun 10, 2024 Billing Provider: REJI MEADOWS MD Cardiology Common Codes: [id number] INP/OBS CARE (High) LIZETTE PÉREZ UNIT ASSISTANT Jun 10, 2024 16:13
--- NOTE | 2024-06-10 18:03 | DVHPNRES ---
Progress Note Date Seen: Jun 10, 2024 Resident Creating Document: SHRADDHA HERNANDEZ RESIDENT Medical Necessity Reason Pt with a Central, PICC or Fol: No Subjective Review of Systems Patient is 64 years old female with past medical history not limited to ESRD on hemodialysis 3 times per week, coronary artery disease, status post PTCA x1 in April 28, 2024, on dual antiplatelet aspirin plus clopidogrel, history of stroke x6, hypertension, hyperlipidemia, diabetes mellitus type 2, congestive heart failure, gout, hypothyroidism, status post thyroid removal, history of right upper extremity DVT came with a complaint of bleeding per rectum and black tarry colored stool and generalized weakness. As per patient she lives in [place] and came to [place] 9 days before. After arrival patient started having bleeding per rectum for 2 days followed by black tarry colored stool and diarrhea. Patient also reported she had chest pain, central in nature, no radiation, 10/10, pressure-like. Patient also reported feeling generalized weakness, dizziness, confused following bleeding per rectum and diarrhea. On further inquiry patient and her family reported that she was feeling confused, slurring of speech, and swelling of her body. Already had 2 round of hemodialysis in [place] in [facility]. Patient denied any fever, trauma stoma, acute joint pain or swelling, dysuria. EKG revealed ventricular premature complex, no acute ST elevation. Initial lab workup revealed severe anemia with hemoglobin 5.7, status post 2 units of blood transfusion, serum creatinine 5.29> 6.15, potassium 3.8, HGB A1c less than 4, troponin I 7> 7> 8, BNP 152.56, TSH 0.7, FT4 0.97, FT3 1.83 INR 1.08,. Occult blood test positive. Still poor shiga toxin negative. Patient had 2 units of blood transfusion after arrival. CXR-Mild cardiomegaly with pulmonary vascular congestion and possible trace bilateral pleural effusions. CT head- No acute intracranial hemorrhage. Small 8.24 mm dural based calcification posterior right parietal lobe. May represent a small granuloma or dural-based meningioma. CT abdomen There is no acute process in the abdomen and pelvis. Several nonspecific subtle hypodense splenic nodules measuring up to 1.5 cm. Further evaluation with MRI abdomen with contrast is recommended. Small hiatal hernia. PMH- ESRD on hemodialysis 3 times per week, coronary artery disease, status post PTCA x1 in April 28, 2024, history of stroke x6, hypertension, hyperlipidemia, diabetes mellitus type 2, congestive heart failure, gout, Hypothyroidism, status post thyroid removal, history of right upper extremity DVT PSH- surgery right clavicle, fistula on right arm Allergy- NKDA Personal History/ Social History- [place] with son, ex-smoker, ex alcoholic, no drug abuser as per patient Patient was seen today at the bedside. Patient reports feeling better today but still feeling tired Cardiovascular- deny acute chest pain or shortness of breath or cough or palpitation Respiratory- denies cough or short of breath or wheezing Musculoskeletal-denies acute joint swelling or tenderness or redness Neurological- denies acute dysarthria, dysphagia, change in vision Psychiatry- denies depression or SI or HI Skin- denies acute rash or purpura Patient was seen today for clinical evaluation. Labs and chart reviewed. Patient reports feeling better today but still some tiredness. Patient with a status post 2 units blood transfusion. Post transfusion hemoglobin level 9.3. Patient was seen by Cardiology and Gastroenterology. Recommendation reviewed and appreciated. Objective vital signs Vital Sign Date Time Temp Pulse Resp B/P (MAP) Pulse Ox O2 Delivery O2 Flow Rate FiO2 06/10/24 17:00 98.1 64 16 125/50 (75) 96 98.1 06/10/24 08:00 Nasal Cannula* 3 32 Total Intake and Output 06/09/24 06/09/24 06/10/24 15:00 23:00 07:00 Intake Total 500 ml 300 ml Output Total 0 ml Balance 500 ml 300 ml medications Current Medications Medications Dose Ordered Sig/Hilary Route Start Time Stop Time Status Last Admin Dose Admin Acetaminophen 325 mg Q4HP PRN PO 06/09/24 21:45 Acetaminophen/ Hydrocodone Bitart 1 tab Q4HP PRN PO 06/09/24 21:45 Ondansetron HCl 4 mg Q4HP PRN IV 06/09/24 21:45 Nitroglycerin 0.4 mg Q5MINP PRN SL 06/09/24 21:45 Morphine Sulfate 2 mg Q30M PRN IV 06/09/24 21:45 Sodium Chloride 1,000 ml @ 60 mls/hr [id number] IV 06/10/24 01:30 06/10/24 01:30 60 MLS/HR Pantoprazole Sodium 40 mg BID IV 06/10/24 10:00 06/10/24 09:42 40 MG Examination General examination- awake, alert, conversant, cooperative HEENT- PEERLA, no acute nasal discharge Cardiovascular- S1-S2 audible, rate and rhythm regular, no murmur Respiratory- CTAB, no wheeze or rhonchi Gastrointestinal-nontender, bowel sound+. Nondistended Musculoskeletal-no acute joint swelling or tenderness or redness# Upper and Lower extremity- no leg edema, right arm fistula for hemodialysis Neurological- cranial nerves intact, no acute dysarthria or dysphagia Psychiatry- denies depression or SI or HI Skin- no acute rash or purpura laboratory and microbiology Laboratory Tests 06/10/24 11:10 Test 06/10/24 11:10 Range/Units Serum Glucose 129 H 74-106 mg/dL Microbiology Date/Time Source Procedure Growth Status 06/09/24 22:32 Stool Stool Culture - Preliminary Resulted 06/09/24 22:32 Stool Shiga Toxin I & II - Final Resulted Problem List/Assessment/Plan Problem List/Assessment/Plan # Severe anemia due to GI bleeding, upper GI versus lower GI tract, on top of anemia of chronic disease -status post 2 unit blood transfusion -ordered GI consult - CT abdomen There is no acute process in the abdomen and pelvis. Several nonspecific subtle hypodense splenic nodules measuring up to 1.5 cm. Further evaluation with MRI abdomen with contrast is recommended. Small hiatal hernia. -hold aspirin and clopidogrel until source of bleeding is found out and patient hemodynamically stable, no sign and symptom of bleeding -CBC, CMP -continue pantoprazole 40 mg IV b.i.d. #GI bleeding, upper GI versus lower GI tract, papa on top of anemia of chronic disease -status post 2 unit blood transfusion -ordered GI consult - CT abdomen There is no acute process in the abdomen and pelvis. Several nonspecific subtle hypodense splenic nodules measuring up to 1.5 cm. Further evaluation with MRI abdomen with contrast is recommended. Small hiatal hernia. -hold aspirin and clopidogrel until source of bleeding is found out and patient hemodynamically stable, no sign and symptom of bleeding -CBC, CMP -continue pantoprazole 40 mg IV b.i.d. # Chest pain, shortness of breath, generalized weakness, dizziness, confusion likely due to severe bleeding and hypotension from GI bleeding -troponin I negative, EKG no acute ST elevation, mildly elevated BNP-152 --status post 2 unit blood transfusion -GI consult reviewed and appreciated -GI recommended--Transfuse if hemoglobin less than seven Continue Protonix and Zofran Clear liquid diet, advance to full liquid if tolerating Possible plan for EGD in 24-48 hours, Dr. Brizuela on standby if active bleeding - CT abdomen There is no acute process in the abdomen and pelvis. Several nonspecific subtle hypodense splenic nodules measuring up to 1.5 cm. Further evaluation with MRI abdomen with contrast is recommended. Small hiatal hernia. -hold aspirin and clopidogrel until source of bleeding is found out and patient hemodynamically stable, no sign and symptom of bleeding -CBC, CMP #Coronary artery disease post PTCA x1, April 28, 2024 -hold aspirin and clopidogrel for acute GI bleeding and severe anemia -cardiology consult reviewed and appreciated #Insulin-dependent diabetes mellitus -monitor blood sugar level #Hypertension -monitor blood pressure #Dyslipidemia -monitor lipid profile # post surgical hypothyroidism, Thyroid disease -continue levothyroxine 160 mg daily #HX of CVA/TIA -history of stroke 6 times -antiplatelet on hold for now due to acute GI bleeding #ESRD on HD -continue hemodialysis as per schedule #Morbid obesity -patient was counseled about weight reduction, healthy diet, physical activity as tolerated Goals of care/advance care planning; FULL CODE; discussed with the patient PUD prophylaxis: Pantoprazole DVT prophylaxis: Patient with active GI bleeding Plan discussed with Dr. Campbell,,, nursing staff, patient Total time spent on patient evaluation, chart review, assessment and plan, discussion discussion >30 minutes Plan discussed with: Patient Plan discussed with: Patient (RN, SISTER), Other My Orders My Orders Orders - SHRADDHA HERNANDEZ Procedure Category Date Status Time * Cardiology Consult CONS 06/10/24 Transmitted 12:45 Date of Service: Jun 10, 2024 Billing Provider: MINDY CAMPBELL MD Common Visit Codes: [id number] INP/OBS CARE(HIGH) Secondary Visit Codes: [id number] CARE PLAN 30 MINUTES SHRADDHA HERNANDEZ Jun 10, 2024 18:03 MINDY CAMPBELL MD Jun 12, 2024 20:08
[2024-06-10 19:04] LABS: Basophils # (auto) 0 10 ^3/uL (0-0.2); Eosinophils # (auto) 0.8 10 ^3/uL (0-0.8); Hematocrit 25.1 % (36.0-46.0); Lymphocytes # (auto) 0.8 10 ^3/uL (0.4-5.4); Mean Corpuscular Hemoglobin 28.4 pg (28.0-32.0); Mean Corpuscular Hgb Conc. 33.3 g/dL (32.0-36.0); Monocytes # (auto) 0.3 10 ^3/uL (0-1.3); Nucleated Red Blood Cells % 0.1 %; White Blood Cell 5.6 10^3/uL (4.4-10.8)
[2024-06-10 19:06] LABS: Basophils % (auto) 0.7 % (0.0-2.0); Eosinophils % (auto) 14.3 % (0.0-7.0); Hemoglobin 8.4 g/dL (12.2-16.2); Lymphocytes % (auto) 14.3 % (10.0-50.0); Mean Corpuscular Volume 85.1 fL (80.0-100.0); Monocytes % (auto) 5.5 % (0.0-12.0); Neutrophils # (auto) 3.7 10 ^3/uL (1.6-8.6); Neutrophils % (auto) 65.2 % (37.0-80.0); Platelet Count (auto) 190 10^3/uL (140-450); Red Blood Cells 2.95 10^6/uL (4.0-5.20); Red Cell Distribution Width 18.6 % (11.8-14.3)
[2024-06-10 19:18] LABS: Chloride 100 mmol/L (98-107); Potassium 4.3 mmol/L (3.5-5.1); Sodium 138 mmol/L (136-145)
[2024-06-10 19:20] LABS: Calcium 9.1 mg/dL (8.7-10.4)
--- NOTE | 2024-06-10 19:23 | DVHINCON2 ---
DATE OF CONSULTATION: 06/10/2024 CONSULTING PHYSICIAN: Dr. Ratliff. REASON FOR CONSULTATION: Management of dialysis. HISTORY OF PRESENT ILLNESS: The patient is a 64-year-old -Japanese female who is visiting from [place]. She has been on dialysis for 5 years because of end-stage renal disease, diabetes and hypertension. She is visiting her family here, she has been getting dialysis at the [facility] in [place]. Her last treatment was yesterday. She says that for the last week and a half, she has been having generalized weakness, shortness of breath, occasional chest pains and she had black stools, 3 times in the last week, very decreased appetite and some nausea. She ended up coming to the hospital here and has been found to have severe anemia. She is being admitted for further management. I am being consulted to handle her dialysis. PAST MEDICAL HISTORY: Significant for longstanding hypertension, diabetes. She apparently had a coronary stent placed last month in [place]. She has a history of obesity, anemia, hyperparathyroidism, gout, hyperlipidemia. SOCIAL HISTORY: She denies smoking cigarettes or drinking alcohol. FAMILY HISTORY: Significant for diabetes and hypertension. MEDICATIONS: List from home is not available here in the hospital, she is on aspirin, morphine, Zofran, acetaminophen. PHYSICAL EXAMINATION: VITAL SIGNS: Blood pressure is 137/54, heart rate 67, respirations 18, temperature 98. GENERAL: The patient is an adult obese -Japanese female who appears to be in no acute distress, alert and oriented x 3. HEENT: Unremarkable. Oral mucosa is pale and dry. NECK: No jugular venous distention. LUNGS: Clear to auscultation bilaterally. CARDIOVASCULAR: Shows regular rate, 1/6 systolic murmur in all auscultatory areas. No pericardial rub. ABDOMEN: Soft, nontender. No organomegalies, no ascites. Bowel sounds are normal in intensity and frequency. EXTREMITIES: Show no clubbing, cyanosis. There is no edema. NEUROLOGIC: Nonfocal. SKIN: Unremarkable. LABORATORY DATA: Hemoglobin is 5.7, white blood cell count 5.8, platelets 202,000. Chemistry panel shows a sodium of 136, potassium 3.8, creatinine 5.2. ASSESSMENT AND PLAN: * End-stage renal disease. There is no need for dialysis today. The patient will be scheduled to have dialysis tomorrow. We will only clean the blood. Minimal ultrafiltration since she will likely be n.p.o. for colonoscopy. * Severe anemia, likely due to gastrointestinal bleeding. She might has been on blood thinners after the stent. However, we do not have her home medication list. This recurrence a Cardiology consultation. In the meantime, she should get 2 units of packed red blood cells transfusion. Monitor hemoglobin closely. Gastroenterology consult is advised. * Controlled hypertension. * Diabetes is well controlled. * No electrolyte abnormalities. The patient will be followed closely during the hospitalization. Thank you for the consult. MD BENEDICTO Cleaning/SALINAS TID: [id number] RECEIPT: [id number]
[2024-06-10 19:25] LABS: Blood Urea Nitrogen 27 mg/dL (9-23); Glucose 108 mg/dL (74-106)
[2024-06-10 19:37] LABS: Anion Gap 6 (5-15); Carbon Dioxide 32 mmol/L (20-31)
[2024-06-11] MEDS: SODIUM CHL 0.9% 1000 ML BAG XX ONE (07:03)
[2024-06-11 07:59] LABS: Basophils # (auto) 0 10 ^3/uL (0-0.2); Basophils % (auto) 0.5 % (0.0-2.0); Eosinophils # (auto) 0.9 10 ^3/uL (0-0.8); Eosinophils % (auto) 14.8 % (0.0-7.0); Hematocrit 26.1 % (36.0-46.0); Hemoglobin 8.7 g/dL (12.2-16.2); Lymphocytes # (auto) 0.9 10 ^3/uL (0.4-5.4); Lymphocytes % (auto) 13.9 % (10.0-50.0); Mean Corpuscular Hemoglobin 28.6 pg (28.0-32.0); Mean Corpuscular Hgb Conc. 33.3 g/dL (32.0-36.0); Mean Corpuscular Volume 85.7 fL (80.0-100.0); Monocytes # (auto) 0.3 10 ^3/uL (0-1.3); Monocytes % (auto) 5.2 % (0.0-12.0); Neutrophils % (auto) 65.6 % (37.0-80.0); Nucleated Red Blood Cells % 0.1 %; Platelet Count (auto) 211 10^3/uL (140-450); Red Blood Cells 3.05 10^6/uL (4.0-5.20); Red Cell Distribution Width 18.9 % (11.8-14.3); White Blood Cell 6.2 10^3/uL (4.4-10.8)
[2024-06-11 08:00] VITALS: PULSE 70
[2024-06-11 08:11] LABS: Alanine Aminotransferase 10 U/L (7-40); Albumin 3.8 g/dL (3.2-4.8); Alkaline Phosphatase 56 U/L (46-116); Anion Gap 8 (5-15); Aspartate Aminotransferase 13 U/L (13-40); BUN/Creatinine Ratio 3.8 (10.0-20.0); Blood Urea Nitrogen 27 mg/dL (9-23); Calcium 9.2 mg/dL (8.7-10.4); Carbon Dioxide 30 mmol/L (20-31); Chloride 102 mmol/L (98-107); Glucose 98 mg/dL (74-106); Sodium 140 mmol/L (136-145)
[2024-06-11 08:12] LABS: Bilirubin, Total 0.3 mg/dL (0.2-1.0)
[2024-06-11 09:00] VITALS: BP 158/67; PULSE 74; RESP 20; TEMP 98.3; O2SAT 97
--- NOTE | 2024-06-11 09:40 | DVHSR ---
APPROVED REPORT EXAM: LIMITED Two-dimensional and M-mode echocardiogram with Doppler and color Doppler. Blood Pressure: 134/50 mmHg INDICATION History of CHF RISK FACTORS Obesity: Height: 5' 2", Weight: 223 DIMENSIONS LVDd4.3 (3.8-5.7cm)LA (2D)4.2 (1.9-4.0cm)Aortic Root2.6 (2.0-3.7cm) LVDs3.1 (2.5-4.0cm)LA (MM) (1.9-4.0cm)Aortic Cusp Exc1.6 (1.5-2.0cm) EF (%) 53.0 (55-70%)Rt. Atrium3.6 (1.9-4.0cm)Asc. Aorta cm IVSd1.5 (0.7-1.1cm)RV (D) (1.8-2.4cm) PWd1.4 (0.7-1.1cm) Mitral Valve MitralMitral Stenosis E wave1.50m/sMV Mean GR.mmHg A wave1.10m/sMV Peak GR.mmHg E/A ratio1.42D MVAcm2 Aortic Valve Aortic ValveAortic Stenosis V11.30m/Best Mean GR.6mmHg V21.70m/Best Peak GR.12mmHg LVOT Diameter2.0 (1.8-2.4cm)Doppler AVA2.40cm2 Pulmonic Valve V21.00m/s Conclusion Normal left ventricular size and dimension. Normal left ventricular systolic function estimated ejec tion fraction 55%. There is a grade 1 diastolic dysfunction. Normal normal right ventricular size and dimension. Normal right ventricular systolic function. Normal biatrial size and dimension. Normal aortic valve structure function. Normal mitral valve structure and function. Normal tricuspid valve structure and function. The pulmonary valve is grossly normal. No pericardial effusion.
[2024-06-11] MEDS ORDERED: ASPirin 81 mg TAB PO SCH (10:00)
--- NOTE | 2024-06-11 12:41 | DVHPN2 ---
Progress Note - Dictate Date Seen: Jun 11, 2024 Medical Necessity Reason Pt with a Central, PICC or Fol: No Subjective She feels well today. vital signs Vital Sign Date Time Temp Pulse Resp B/P (MAP) Pulse Ox O2 Delivery O2 Flow Rate FiO2 06/11/24 09:00 98.3 74 20 158/67 (97) 97 98.3 06/10/24 20:00 Nasal Cannula* 2 28 Total Intake and Output 06/10/24 06/10/24 06/11/24 15:00 23:00 07:00 Intake Total 300 ml 960 ml Output Total 1 ml 300 ml Balance 300 ml 959 ml -300 ml medications Current Medications Medications Dose Ordered Sig/Hilary Route Start Time Stop Time Status Last Admin Dose Admin Acetaminophen 325 mg Q4HP PRN PO 06/09/24 21:45 Acetaminophen/ Hydrocodone Bitart 1 tab Q4HP PRN PO 06/09/24 21:45 Ondansetron HCl 4 mg Q4HP PRN IV 06/09/24 21:45 Nitroglycerin 0.4 mg Q5MINP PRN SL 06/09/24 21:45 Morphine Sulfate 2 mg Q30M PRN IV 06/09/24 21:45 Sodium Chloride 1,000 ml @ 60 mls/hr [id number] IV 06/10/24 01:30 06/10/24 17:56 60 MLS/HR Pantoprazole Sodium 40 mg BID IV 06/10/24 10:00 06/11/24 10:16 40 MG objective General Appearance: Alert, Oriented X3, Cooperative, mild distress HEENT: Atraumatic, PERRLA, EOMI, Mucous membr. moist/pink Respiratory: Clear to auscultation, Normal air movement Cardiovascular: Regular rate, Normal S1, Normal S2, No murmurs Abdominal: Normal bowel sounds, Soft, No tenderness, No hepatospenomegaly, No masses Extremities: No clubbing, No cyanosis, No edema, Normal pulses, No tenderness/swelling Skin: No rashes, No breakdown, No significant lesion Neuro: Normal speech, Strength at 5/5 X4 ext, Normal tone, Sensation intact Psych/Mental Status: Mental status NL, Mood NL laboratory and microbiology Laboratory Tests 06/11/24 07:23 Test 06/11/24 07:23 Range/Units Serum Glucose 98 74-106 mg/dL Assessment/Plan Assessment and plan: 1. End-stage renal disease. HD TTS 2. Severe anemia GI consult. KEYA and iron for goal Hb 10-11 gr/dl. 3. GI bleed. 4. Diabetes is well controlled. 5. Hypertension Plan discussed with: Patient ZHANNA WASHBURN MD Jun 11, 2024 12:40
--- NOTE | 2024-06-11 13:08 | DVHPNRES ---
Progress Note Date Seen: Jun 11, 2024 Resident Creating Document: SHRADDHA HERNANDEZ RESIDENT Medical Necessity Reason Pt with a Central, PICC or Fol: No Subjective Review of Systems Patient is 64 years old female with past medical history not limited to ESRD on hemodialysis 3 times per week, coronary artery disease, status post PTCA x1 in April 28, 2024, on dual antiplatelet aspirin plus clopidogrel, history of stroke x6, hypertension, hyperlipidemia, diabetes mellitus type 2, congestive heart failure, gout, hypothyroidism, status post thyroid removal, history of right upper extremity DVT came with a complaint of bleeding per rectum and black tarry colored stool and generalized weakness. As per patient she lives in [place] and came to [place] 9 days before. After arrival patient started having bleeding per rectum for 2 days followed by black tarry colored stool and diarrhea. Patient also reported she had chest pain, central in nature, no radiation, 10/10, pressure-like. Patient also reported feeling generalized weakness, dizziness, confused following bleeding per rectum and diarrhea. On further inquiry patient and her family reported that she was feeling confused, slurring of speech, and swelling of her body. Already had 2 round of hemodialysis in [place] in [facility]. Patient denied any fever, trauma stoma, acute joint pain or swelling, dysuria. EKG revealed ventricular premature complex, no acute ST elevation. Initial lab workup revealed severe anemia with hemoglobin 5.7, status post 2 units of blood transfusion, serum creatinine 5.29> 6.15, potassium 3.8, HGB A1c less than 4, troponin I 7> 7> 8, BNP 152.56, TSH 0.7, FT4 0.97, FT3 1.83 INR 1.08,. Occult blood test positive. Still poor shiga toxin negative. Patient had 2 units of blood transfusion after arrival. CXR-Mild cardiomegaly with pulmonary vascular congestion and possible trace bilateral pleural effusions. CT head- No acute intracranial hemorrhage. Small 8.24 mm dural based calcification posterior right parietal lobe. May represent a small granuloma or dural-based meningioma. CT abdomen There is no acute process in the abdomen and pelvis. Several nonspecific subtle hypodense splenic nodules measuring up to 1.5 cm. Further evaluation with MRI abdomen with contrast is recommended. Small hiatal hernia. PMH- ESRD on hemodialysis 3 times per week, coronary artery disease, status post PTCA x1 in April 28, 2024, history of stroke x6, hypertension, hyperlipidemia, diabetes mellitus type 2, congestive heart failure, gout, Hypothyroidism, status post thyroid removal, history of right upper extremity DVT PSH- surgery right clavicle, fistula on right arm Allergy- NKDA Personal History/ Social History- [place] with son, ex-smoker, ex alcoholic, no drug abuser as per patient Patient was seen today at the bedside. Patient reports feeling better today but still feeling tired Cardiovascular- deny acute chest pain or shortness of breath or cough or palpitation Respiratory- denies cough or short of breath or wheezing Musculoskeletal-denies acute joint swelling or tenderness or redness Neurological- denies acute dysarthria, dysphagia, change in vision Psychiatry- denies depression or SI or HI Skin- denies acute rash or purpura Patient was seen today for clinical evaluation. Labs and chart reviewed. Patient with a status post 2 units blood transfusion. Hemoglobin 8.7, serum creatinine 7.06, GFR 6, patient is scheduled for hemodialysis today. Patient is seen by police cadet, Dr. Brizuela, recommended endoscopy tomorrow. Patient can have full liquid diet today and will be kept NPO after midnight. Echo 2D revealed-Normal left ventricular size and dimension. Normal left ventricular systolic function estimated ejection fraction 55%. There is a grade 1 diastolic dysfunction. Normal normal right ventricular size and dimension. Normal right ventricular systolic function. Objective vital signs Vital Sign Date Time Temp Pulse Resp B/P (MAP) Pulse Ox O2 Delivery O2 Flow Rate FiO2 06/11/24 09:00 98.3 74 20 158/67 (97) 97 98.3 06/10/24 20:00 Nasal Cannula* 2 28 Total Intake and Output 06/10/24 06/10/24 06/11/24 15:00 23:00 07:00 Intake Total 300 ml 960 ml Output Total 1 ml 300 ml Balance 300 ml 959 ml -300 ml medications Current Medications Medications Dose Ordered Sig/Hilary Route Start Time Stop Time Status Last Admin Dose Admin Acetaminophen 325 mg Q4HP PRN PO 06/09/24 21:45 Acetaminophen/ Hydrocodone Bitart 1 tab Q4HP PRN PO 06/09/24 21:45 Ondansetron HCl 4 mg Q4HP PRN IV 06/09/24 21:45 Nitroglycerin 0.4 mg Q5MINP PRN SL 06/09/24 21:45 Morphine Sulfate 2 mg Q30M PRN IV 06/09/24 21:45 Sodium Chloride 1,000 ml @ 60 mls/hr [id number] IV 06/10/24 01:30 06/10/24 17:56 60 MLS/HR Pantoprazole Sodium 40 mg BID IV 06/10/24 10:00 06/11/24 10:16 40 MG Iron Sucrose 110 ml @ 110 mls/hr DAILY@1200 IV 06/12/24 12:00 06/16/24 12:59 UNV Examination General examination- awake, alert, conversant, cooperative HEENT- PEERLA, no acute nasal discharge Cardiovascular- S1-S2 audible, rate and rhythm regular, no murmur Respiratory- CTAB, no wheeze or rhonchi Gastrointestinal-nontender, bowel sound+. Nondistended Musculoskeletal-no acute joint swelling or tenderness or redness# Upper and Lower extremity- no leg edema, right arm fistula for hemodialysis Neurological- cranial nerves intact, no acute dysarthria or dysphagia Psychiatry- denies depression or SI or HI Skin- no acute rash or purpura laboratory and microbiology Laboratory Tests 06/11/24 07:23 Test 06/11/24 07:23 Range/Units Serum Glucose 98 74-106 mg/dL Microbiology Date/Time Source Procedure Growth Status 06/09/24 22:32 Stool Stool Culture - Preliminary Resulted 06/09/24 22:32 Stool Shiga Toxin I & II - Final Resulted Problem List/Assessment/Plan Problem List/Assessment/Plan # Severe anemia due to GI bleeding, upper GI versus lower GI tract, on top of anemia of chronic disease -status post 2 unit blood transfusion -hemoglobin level stable, today hemoglobin 8.7. -status post GI consult, recommended to put patient on full liquid diet today, plan is to do endoscopic tomorrow. - CT abdomen There is no acute process in the abdomen and pelvis. Several nonspecific subtle hypodense splenic nodules measuring up to 1.5 cm. Further evaluation with MRI abdomen with contrast is recommended. Small hiatal hernia. -hold aspirin and clopidogrel until source of bleeding is found out and patient hemodynamically stable, no sign and symptom of bleeding -CBC, CMP -continue pantoprazole 40 mg IV qd #GI bleeding, upper GI versus lower GI tract, papa on top of anemia of chronic disease --status post 2 unit blood transfusion -hemoglobin level stable, today hemoglobin 8.7. -status post GI consult, recommended to put patient on full liquid diet today, plan is to do endoscopic tomorrow. - CT abdomen There is no acute process in the abdomen and pelvis. Several nonspecific subtle hypodense splenic nodules measuring up to 1.5 cm. Further evaluation with MRI abdomen with contrast is recommended. Small hiatal hernia. -hold aspirin and clopidogrel until source of bleeding is found out and patient hemodynamically stable, no sign and symptom of bleeding -CBC, CMP -continue pantoprazole 40 mg IV qd # Chest pain, shortness of breath, generalized weakness, dizziness, confusion likely due to severe bleeding and hypotension from GI bleeding -troponin I negative, EKG no acute ST elevation, mildly elevated BNP-152 --status post 2 unit blood transfusion -hemoglobin stable, today 8.7. -GI consult reviewed and appreciated -GI recommended--Transfuse if hemoglobin less than seven -plan is for endoscopic tomorrow Continue Protonix and Zofran Clear liquid diet, advance to full liquid if tolerating - CT abdomen There is no acute process in the abdomen and pelvis. Several nonspecific subtle hypodense splenic nodules measuring up to 1.5 cm. Further evaluation with MRI abdomen with contrast is recommended. Small hiatal hernia. -hold aspirin and clopidogrel until source of bleeding is found out and patient hemodynamically stable, no sign and symptom of bleeding -CBC, CMP #Coronary artery disease post PTCA x1, April 28, 2024 -hold aspirin and clopidogrel for acute GI bleeding and severe anemia -cardiology consult reviewed and appreciated #Insulin-dependent diabetes mellitus -monitor blood sugar level #Hypertension -monitor blood pressure #Dyslipidemia -monitor lipid profile # post surgical hypothyroidism, Thyroid disease -continue levothyroxine 160 mg daily #HX of CVA/TIA -history of stroke 6 times -antiplatelet on hold for now due to acute GI bleeding #ESRD on HD -nephrology recommendation reviewed and appreciated -continue hemodialysis as per Nephrology recommendation -avoid nephrotoxic drugs # hiatal hernia incidental finding -no acute intervention was #Morbid obesity -patient was counseled about weight reduction, healthy diet, physical activity as tolerated Goals of care/advance care planning; FULL CODE; discussed with the patient PUD prophylaxis: Pantoprazole DVT prophylaxis: Patient with active GI bleeding Plan discussed with Dr. Campbell,,, nursing staff, patient Total time spent on patient evaluation, chart review, assessment and plan, discussion discussion >30 minutes Plan discussed with: Patient Plan discussed with: Patient, Other (RN) Date of Service: Jun 11, 2024 Billing Provider: MINDY CAMPBELL MD Common Visit Codes: [id number] INP/OBS CARE(HIGH) SHRADDHA HERNANDEZ RESIDENT Jun 11, 2024 13:08 MINDY CAMPBELL MD Jun 12, 2024 20:08
--- NOTE | 2024-06-11 13:48 | DVHPN2 ---
Subjective Patient feeling slightly better No abdominal pain. No nausea or vomiting Patient admits to black stool No EGD in past Changes from previous H/P or p: No Changes Eyes: No Pain, No Vision change, No Conjunctivae inflammation, No Eyelid inflammation, No Other, No Redness ENT: No Ear pain, No Ear discharge, No Nose pain, No Nose discharge, No Nose congestion, No Mouth pain, No Mouth swelling, No Throat pain, No Throat swelling, No Other Cardiovascular: Chest Pain Respiratory: No Cough, No Dry; Shortness of breath; No SOB with excertion, No Wheezing, No Hemoptysis, No Pleuritic Pain, No Sputum, No Other Gastrointestinal: Nausea, Diarrhea, Melena, Hematochezia Genitourinary: No Dysuria, No Frequency, No Incontinence, No Hematuria, No Retention, No Other Musculoskeletal: No other, No neck pain, No shoulder pain, No arm pain, No back pain, No hand pain, No leg pain, No foot pain Skin: No Rash, No Lesions, No Jaundice, No Bruising, No Other Objective Vitals Vital Signs Date Time Temp Pulse Resp B/P (MAP) Pulse Ox O2 Delivery O2 Flow Rate FiO2 06/11/24 09:00 98.3 74 20 158/67 (97) 97 98.3 06/10/24 20:00 Nasal Cannula* 2 28 Intake/Output Intake and Output 06/11/24 07:00 Intake Total 1260 ml Output Total 301 ml Balance 959 ml Intake Oral 360 ml IV Total 600 ml Blood Product 300 ml Other 0 ml Output Urine Total 301 ml General Appearance: Alert, Oriented X3, Cooperative, No acute distress, mild distress, moderate distress, severe distress, Other Lungs: Clear to auscultation, Normal air movement, Other Cardiovascular: Regular rate, Normal S1, Normal S2, No murmurs, Gallops, Rubs, Other Abdomen: Normal bowel sounds, Soft, No tenderness, No hepatospenomegaly, No masses, Other Medications Current Medications Medications Dose Ordered Sig/Hilary Route Start Time Stop Time Status Last Admin Dose Admin Acetaminophen 325 mg Q4HP PRN PO 06/09/24 21:45 Acetaminophen/ Hydrocodone Bitart 1 tab Q4HP PRN PO 06/09/24 21:45 Ondansetron HCl 4 mg Q4HP PRN IV 06/09/24 21:45 Nitroglycerin 0.4 mg Q5MINP PRN SL 06/09/24 21:45 Morphine Sulfate 2 mg Q30M PRN IV 06/09/24 21:45 Sodium Chloride 1,000 ml @ 60 mls/hr [id number] IV 06/10/24 01:30 06/10/24 17:56 60 MLS/HR Pantoprazole Sodium 40 mg BID IV 06/10/24 10:00 06/11/24 10:16 40 MG Iron Sucrose 110 ml @ 110 mls/hr DAILY@1200 IV 06/12/24 12:00 06/16/24 12:59 UNV Laboratory Results Laboratory Tests 06/11/24 07:23 Chemistry Test 06/10/24 18:49 06/11/24 07:23 Calcium Level 9.1 mg/dL (8.7-10.4) 9.2 mg/dL (8.7-10.4) Albumin 3.8 g/dL (3.2-4.8) Total Protein 6.0 g/dL (5.7-8.2) LFT Test 06/11/24 07:23 Alanine Aminotransferase (ALT) 10 U/L (7-40) Alkaline Phosphatase 56 U/L (46-116) Aspartate Amino Transferase (AST) 13 U/L (13-40) Total Bilirubin 0.3 mg/dL (0.2-1.0) Microbiology Microbiology Date/Time Source Procedure Growth Status 06/09/24 22:32 Stool Stool Culture - Preliminary Resulted 06/09/24 22:32 Stool Shiga Toxin I & II - Final Resulted Labs and/or images reviewed: Labs reviewed by me, Image(s) reviewed by me Assessment/Plan Assessment/Plan Severe anemia GI bleed possible Abdominal pain improving History of GERD Hiatal hernia Plan: Discussed with Dr. Brizuela EGD for tomorrow 06/12/2024. Discussed risks, benefits, alternatives of procedure and sedation, patient understands and agrees Advance diet as tolerated Hold all blood thinners Plan discussed with patient and RN Plan discussed with: Patient, Other (RN) My Orders Orders - MUKESH HARVEY Procedure Category Date Status Time Obtain Consent For: ORDERS 06/11/24 Transmitted 13:41 Obtain Consent For GRECIA 06/11/24 In Process Anesthesia 13:41 Npo After Midnight DIET 06/11/24 Transmitted Dinner Date of Service: Jun 11, 2024 Billing Provider: MUKESH HARVEY Common Visit Codes: [id number] INP/OBS CARE(MOD) MUKESH HARVEY Jun 11, 2024 13:47
--- NOTE | 2024-06-11 14:56 | PEER ---
Peer to Peer Review Time DATE: 06/11/24 TIME: 14:55 Review and Recommendations: Dr. Mcconnell approved for inpatient admission for GI Bleed and Acute Resp Failure. LIZETTE PÉREZ [facility] Jun 11, 2024 14:56
[2024-06-11 17:00] VITALS: BP 151/77; PULSE 79; RESP 19; TEMP 97.9; O2SAT 96
[2024-06-11 20:00] VITALS: PULSE 73
[2024-06-11 21:00] VITALS: BP 172/79; PULSE 86; RESP 22; TEMP 98.2; O2SAT 100
[2024-06-11] MEDS: EPOETIN ALFA-EPBX 10,000 UNIT/1ML VIAL SC ONE (21:08)
[2024-06-11 22:10] VITALS: BP 139/59
[2024-06-11] MEDS ORDERED: DEXTROSE (50%) 50ML SYRG IV PRN ×2 (22:30→22:45)
[2024-06-11] MEDS ORDERED: InsuLIN REG 1unit/0.01ml Soln (100units/ml) SC SCH (22:45)
[2024-06-11] MEDS: InsuLIN REG 1unit/0.01ml Soln (100units/ml) SC SCH (22:53)
[2024-06-12] VITALS (10 sets, daily range): BP systolic 129–168; BP diastolic 42–79; PULSE 63–82; RESP 16–22; TEMP 97.8–99.1; O2SAT 97–100
[2024-06-12] MEDS: ACCU-CHEK COMFORT CURVE STRIP VI SCH (06:07)
[2024-06-12] MEDS ORDERED: ACCU-CHEK COMFORT CURVE STRIP VI SCH (07:00)
[2024-06-12] MEDS ORDERED: InsuLIN REG 1unit/0.01ml Soln (100units/ml) SC SCH ×2 (07:00→22:00)
--- NOTE | 2024-06-12 07:43 | DVH ---
XY CHEST TWO VIEWS ROUTINE CLINICAL HISTORY: procedure COMPARISON: Chest radiograph performed on 06/09/2024. TECHNIQUE: Frontal and lateral view of the chest was obtained FINDINGS: Lines and Tubes: None Lungs: Pulmonary congestion noted. Pleura: No effusion. No pneumothorax. Cardiomediastinal contours: Unremarkable Bones: No acute osseous abnormality. IMPRESSION: 1. Pulmonary congestion.
[2024-06-12 08:37] LABS: Urine WBC None Seen /hpf (0 - 5)
[2024-06-12 09:08] LABS: Urine Bacteria FEW /hpf (None Seen); Urine Blood Negative /uL (Negative); Urine Clarity Clear (Clear); Urine Color Light-Yellow (Yellow); Urine Protein, UAD 1+ (Negative); Urine Specific Gravity 1.008 (1.001-1.035); Urine Urobilinogen Normal (Negative)
[2024-06-12] MEDS ORDERED: fentaNYL CITRATE 100 MCG/2 ML VL ONE (11:20)
[2024-06-12] MEDS ORDERED: PROPOFOL 10 MG/ML 20 ML IV ONE (11:20)
[2024-06-12] MEDS ORDERED: IRON SUCROSE COMPLEX 110 ML IV SCH (12:00)
[2024-06-12] MEDS: SODIUM FERR GLUC 62.5MG/5ML 110 ML IV SCH (12:46)
[2024-06-12] MEDS: ACCU-CHEK COMFORT CURVE STRIP VI ONE (12:54)
[2024-06-12] MEDS: LABETALOL HCL 20 MG/4 ML VL IV PRN (13:04)
[2024-06-12 14:16] LABS: Basophils # (auto) 0 10 ^3/uL (0-0.2); Basophils % (auto) 0.6 % (0.0-2.0); Eosinophils # (auto) 0.7 10 ^3/uL (0-0.8); Eosinophils % (auto) 13.1 % (0.0-7.0); Hematocrit 28.1 % (36.0-46.0); Hemoglobin 9.3 g/dL (12.2-16.2); Lymphocytes # (auto) 0.9 10 ^3/uL (0.4-5.4); Lymphocytes % (auto) 16.7 % (10.0-50.0); Mean Corpuscular Hemoglobin 28.6 pg (28.0-32.0); Mean Corpuscular Volume 86.7 fL (80.0-100.0); Monocytes # (auto) 0.2 10 ^3/uL (0-1.3); Monocytes % (auto) 3.8 % (0.0-12.0); Neutrophils # (auto) 3.6 10 ^3/uL (1.6-8.6); Neutrophils % (auto) 65.8 % (37.0-80.0); Platelet Count (auto) 78 10^3/uL (140-450); Red Blood Cells 3.25 10^6/uL (4.0-5.20); Red Cell Distribution Width 18.4 % (11.8-14.3); White Blood Cell 5.4 10^3/uL (4.4-10.8)
[2024-06-12 14:23] LABS: Chloride 105 mmol/L (98-107); Potassium 3.7 mmol/L (3.5-5.1); Sodium 141 mmol/L (136-145)
[2024-06-12 14:24] LABS: Anion Gap 6 (5-15); Carbon Dioxide 30 mmol/L (20-31)
[2024-06-12 14:25] LABS: Calcium 9.2 mg/dL (8.7-10.4)
[2024-06-12 14:29] LABS: BUN/Creatinine Ratio 2.6 (10.0-20.0); Blood Urea Nitrogen 13 mg/dL (9-23); Glucose 121 mg/dL (74-106)
[2024-06-12 14:30] LABS: Magnesium 2.1 mg/dL (1.6-2.6)
--- NOTE | 2024-06-12 15:27 | DVHOP2 ---
Operative Report DATE OF OPERATION: 06/12/24 PROCEDURE: Upper Endoscopy with biopsy PREOPERATIVE INDICATION: The patient is a 64 -year-old female undergoing endoscopy for severe anemia and epigastric pain POSTOPERATIVE DIAGNOSES: 1. Patient had a 1-2 cm sliding-type hiatal hernia with grade a erosive esophagitis 2. Mild gastroduodenitis with antral gastric erosions PROCEDURE PERFORMED BY: Radha Brizuela GI NURSE: Eduar SCOPE: Olympus videoendoscope. ASA CLASS: 3. PREOPERATIVE MEDICATIONS: Shaheen bermudez, Dr. Lorenzo PROCEDURE IN DETAIL: After obtaining an informed consent, the patient was placed on left lateral decubitus position. The patient was then sedated with the above medications. A bite block was placed between her teeth. The endoscope was then passed through the oropharynx, into the esophagus, and through the stomach and pylorus up to the second and third part of the duodenum. The endoscope was then withdrawn. The 2nd and 3rd part of the duodenum were normal. Duodenal bulb showed minimal duodenitis The pre-pyloric area and antrum showed mild antral gastritis with some pre- pyloric antral gastric erosions On retroflexion the fundus and cardia were normal. There was no fresh or old blood in the stomach. Gastric biopsies were obtained The endoscope was then withdrawn into the distal esophagus where the patient had a 1-2 cm sliding-type hiatal hernia with grade a erosive esophagitis GE junction biopsies were obtained. The remaining distal and proximal esophagus and oropharynx were unremarkable The patient tolerated the procedure well without difficulty. COMPLICATIONS : None SPECIMENS: Duodenal biopsies Gastric biopsies GE junction biopsies DISPOSITION: Transfer back to the [facility] Stable PLAN: 1. Await for biopsy result 2. Will place pt on Protonix 40 mg p.o. daily 3. Carafate 1 g p.o. q.h.s. or twice a day 4. DC aspirin NSAIDs smoking alcohol 5. Patient with follow up with her primary doctor in [place] to arrange outpatient elective colonoscopy 6. Continue dialysis support as needed and discharge planning as per hospitalist RADHA BRIZUELA MD Jun 12, 2024 15:27
--- NOTE | 2024-06-12 15:38 | DVHPNRES ---
Progress Note Date Seen: Jun 12, 2024 Resident Creating Document: SHRADDHA HERNANDEZ RESIDENT Medical Necessity Reason Pt with a Central, PICC or Fol: No Subjective Review of Systems Patient is 64 years old female with past medical history not limited to ESRD on hemodialysis 3 times per week, coronary artery disease, status post PTCA x1 in April 28, 2024, on dual antiplatelet aspirin plus clopidogrel, history of stroke x6, hypertension, hyperlipidemia, diabetes mellitus type 2, congestive heart failure, gout, hypothyroidism, status post thyroid removal, history of right upper extremity DVT came with a complaint of bleeding per rectum and black tarry colored stool and generalized weakness. As per patient she lives in [place] and came to [place] 9 days before. After arrival patient started having bleeding per rectum for 2 days followed by black tarry colored stool and diarrhea. Patient also reported she had chest pain, central in nature, no radiation, 10/10, pressure-like. Patient also reported feeling generalized weakness, dizziness, confused following bleeding per rectum and diarrhea. On further inquiry patient and her family reported that she was feeling confused, slurring of speech, and swelling of her body. Already had 2 round of hemodialysis in [place] in [facility]. Patient denied any fever, trauma stoma, acute joint pain or swelling, dysuria. EKG revealed ventricular premature complex, no acute ST elevation. Initial lab workup revealed severe anemia with hemoglobin 5.7, status post 2 units of blood transfusion, serum creatinine 5.29> 6.15, potassium 3.8, HGB A1c less than 4, troponin I 7> 7> 8, BNP 152.56, TSH 0.7, FT4 0.97, FT3 1.83 INR 1.08,. Occult blood test positive. Still poor shiga toxin negative. Patient had 2 units of blood transfusion after arrival. CXR-Mild cardiomegaly with pulmonary vascular congestion and possible trace bilateral pleural effusions. CT head- No acute intracranial hemorrhage. Small 8.24 mm dural based calcification posterior right parietal lobe. May represent a small granuloma or dural-based meningioma. CT abdomen There is no acute process in the abdomen and pelvis. Several nonspecific subtle hypodense splenic nodules measuring up to 1.5 cm. Further evaluation with MRI abdomen with contrast is recommended. Small hiatal hernia. Echo 2D revealed-Normal left ventricular size and dimension. Normal left ventricular systolic function estimated ejection fraction 55%. There is a grade 1 diastolic dysfunction, Normal normal right ventricular size and dimension. Normal right ventricular systolic function. PMH- ESRD on hemodialysis 3 times per week, coronary artery disease, status post PTCA x1 in April 28, 2024, history of stroke x6, hypertension, hyperlipidemia, diabetes mellitus type 2, congestive heart failure, gout, Hypothyroidism, status post thyroid removal, history of right upper extremity DVT PSH- surgery right clavicle, fistula on right arm Allergy- NKDA Personal History/ Social History- [place] with son, ex-smoker, ex alcoholic, no drug abuser as per patient Patient was seen today at the bedside. Patient reports feeling better today but still feeling tired Cardiovascular- deny acute chest pain or shortness of breath or cough or palpitation Respiratory- denies cough or short of breath or wheezing Musculoskeletal-denies acute joint swelling or tenderness or redness Neurological- denies acute dysarthria, dysphagia, change in vision Psychiatry- denies depression or SI or HI Skin- denies acute rash or purpura Patient was seen today for clinical evaluation. Labs and chart reviewed. Reports feeling better today. Patient had hemodialysis yesterday and scheduled for endoscopy today on 06/12/24. Endoscopic revealed-Patient had a 1-2 cm sliding-type hiatal hernia with grade a erosive esophagitis. Mild gastroduodenitis with antral gastric erosions. Gastroenterology recommended for panics 40 mg p.o. daily, Carafate 1 g p.o. q.h.s. or twice a day. Gastroenterology also recommended that patient we will follow up with her primary care doctor in [place] to arrange outpatient elective colonoscopy. Objective vital signs Vital Sign Date Time Temp Pulse Resp B/P (MAP) Pulse Ox O2 Delivery O2 Flow Rate FiO2 06/12/24 13:04 68 162/73 06/12/24 12:25 97.8 18 97 97.8 06/12/24 11:49 Room Air 97 06/12/24 07:50 0 Total Intake and Output 06/11/24 06/11/24 06/12/24 15:00 23:00 07:00 Intake Total 250 ml 0 ml Output Total 400 ml 0 ml Balance -400 ml 250 ml 0 ml medications Current Medications Medications Dose Ordered Sig/Hilary Route Start Time Stop Time Status Last Admin Dose Admin Acetaminophen 325 mg Q4HP PRN PO 06/09/24 21:45 Acetaminophen/ Hydrocodone Bitart 1 tab Q4HP PRN PO 06/09/24 21:45 Ondansetron HCl 4 mg Q4HP PRN IV 06/09/24 21:45 Nitroglycerin 0.4 mg Q5MINP PRN SL 06/09/24 21:45 Morphine Sulfate 2 mg Q30M PRN IV 06/09/24 21:45 Sodium Chloride 1,000 ml @ 60 mls/hr [id number] IV 06/10/24 01:30 06/12/24 04:33 60 MLS/HR Pantoprazole Sodium 40 mg BID IV 06/10/24 10:00 06/12/24 08:44 40 MG Labetalol HCl 10 mg Q2HPRN PRN IV 06/11/24 22:30 06/12/24 13:04 10 MG Diagnostic Test (Pha) 1 strip ACHS 06/12/24 07:00 06/12/24 12:54 1 STRIP Insulin Human Regular HS SC 06/12/24 22:00 Insulin Human Regular AC SC 06/11/24 22:45 06/11/24 22:53 9 UNITS Dextrose 50 ml UD PRN IV 06/11/24 22:45 Ferric Sodium Gluconate Complex 110 ml @ 110 mls/hr DAILY@1200 IV 06/12/24 12:00 06/16/24 12:59 06/12/24 12:46 110 MLS/HR Sucralfate 1 gm BID@0600,2200 PO 06/12/24 22:00 UNV Examination General examination- awake, alert, conversant, cooperative HEENT- PEERLA, no acute nasal discharge Cardiovascular- S1-S2 audible, rate and rhythm regular, no murmur Respiratory- CTAB, no wheeze or rhonchi Gastrointestinal-nontender, bowel sound+. Nondistended Musculoskeletal-no acute joint swelling or tenderness or redness# Upper and Lower extremity- no leg edema, right arm fistula for hemodialysis Neurological- cranial nerves intact, no acute dysarthria or dysphagia Psychiatry- denies depression or SI or HI Skin- no acute rash or purpura laboratory and microbiology Laboratory Tests 06/12/24 13:36 Test 06/12/24 13:36 Range/Units Serum Glucose 121 H 74-106 mg/dL Microbiology Date/Time Source Procedure Growth Status 06/09/24 22:32 Stool Stool Culture - Final Complete 06/09/24 22:32 Stool Shiga Toxin I & II - Final Complete Problem List/Assessment/Plan Problem List/Assessment/Plan # Severe anemia due to GI bleeding, upper GI versus lower GI tract, on top of anemia of chronic disease -status post 2 unit blood transfusion -hemoglobin level stable- 5.4> 9.3> 8.4> 8.7> 9.3 -endoscopy revealed-Grade a erosive esophagitis. Mild gastroduodenitis with antral gastric erosions. - CT abdomen There is no acute process in the abdomen and pelvis. Several nonspecific subtle hypodense splenic nodules measuring up to 1.5 cm. Further evaluation with MRI abdomen with contrast is recommended. Small hiatal hernia. -hold aspirin and clopidogrel until source of bleeding is found out and patient hemodynamically stable, no sign and symptom of bleeding --Gastroenterology recommended for pantoprazole 40 mg p.o. daily, -Carafate 1 g p.o. q.h.s. or twice a day. - Gastroenterology also recommended that patient we will follow up with her primary care doctor in [place] to arrange outpatient elective colonoscopy. #GI bleeding, upper GI versus lower GI tract, papa on top of anemia of chronic disease --endoscopy revealed-Grade a erosive esophagitis. Mild gastroduodenitis with antral gastric erosions. --status post 2 unit blood transfusion -hemoglobin level stable, today hemoglobin 8.7. - CT abdomen There is no acute process in the abdomen and pelvis. Several nonspecific subtle hypodense splenic nodules measuring up to 1.5 cm. Further evaluation with MRI abdomen with contrast is recommended. Small hiatal hernia. Hold aspirin or clopidogrel or any blood thinner at this moment -CBC, CMP -continue pantoprazole 40 mg PO qd #Grade a erosive esophagitis. Mild gastroduodenitis with antral gastric erosions. -Gastroenterology recommended for pantoprazole 40 mg p.o. daily, -Carafate 1 g p.o. q.h.s. or twice a day. - Gastroenterology also recommended that patient we will follow up with her primary care doctor in [place] to arrange outpatient elective colonoscopy. # Chest pain, shortness of breath, generalized weakness, dizziness, confusion likely due to severe bleeding and hypotension following GI bleeding -troponin I negative, EKG no acute ST elevation, mildly elevated BNP-152 --status post 2 unit blood transfusion - CT abdomen There is no acute process in the abdomen and pelvis. Several nonspecific subtle hypodense splenic nodules measuring up to 1.5 cm. Further evaluation with MRI abdomen with contrast is recommended. Small hiatal hernia. -hold aspirin and clopidogrel until source of bleeding is found out and patient hemodynamically stable, no sign and symptom of bleeding -CBC, CMP #Coronary artery disease post PTCA x1, April 28, 2024 -hold aspirin and clopidogrel for acute GI bleeding and severe anemia -cardiology consult reviewed and appreciated -Gastroenterology recommended for pantoprazole 40 mg p.o. daily, -Carafate 1 g p.o. q.h.s. or twice a day. - Gastroenterology also recommended that patient we will follow up with her primary care doctor in [place] to arrange outpatient elective colonoscopy. #Insulin-dependent diabetes mellitus -monitor blood sugar level #Hypertension -monitor blood pressure #Dyslipidemia -monitor lipid profile # post surgical hypothyroidism, Thyroid disease -continue levothyroxine 160 mg daily #HX of CVA/TIA -history of stroke 6 times -antiplatelet on hold for now due to acute GI bleeding #ESRD on HD -patient had hemodialysis on 06/12/2024 -nephrology recommendation reviewed and appreciated -continue hemodialysis as per Nephrology recommendation -avoid nephrotoxic drugs # hiatal hernia incidental finding -no acute intervention was #Morbid obesity -patient was counseled about weight reduction, healthy diet, physical activity as tolerated # ENDOSCOPIC FINDING OF 1-2 cm sliding-type hiatal hernia with Goals of care/advance care planning; FULL CODE; discussed with the patient PUD prophylaxis: Pantoprazole DVT prophylaxis: Patient with active GI bleeding Plan discussed with Dr. Campbell,,, nursing staff, patient Total time spent on patient evaluation, chart review, assessment and plan, discussion discussion >30 minutes Plan discussed with: Patient Plan discussed with: Patient, Other (RN) My Orders My Orders Orders - SHRADDHA HERNANDEZ Procedure Category Date Status Time Chest Two Views XY 06/12/24 Resulted Routine 04:00 Regular Diet DIET 06/12/24 Transmitted Lunch Date of Service: Jun 12, 2024 Billing Provider: MINDY CAMPBELL MD Common Visit Codes: [id number] INP/OBS CARE(HIGH) SHRADDHA HERNANDEZ Jun 12, 2024 15:38 MINDY CAMPBELL MD Jun 12, 2024 20:09
--- NOTE | 2024-06-12 15:39 | DVHPN2 ---
Progress Note - Dictate Date Seen: Jun 12, 2024 Medical Necessity Reason Pt with a Central, PICC or Fol: No Subjective Patient denies abdominal pain. vital signs Vital Sign Date Time Temp Pulse Resp B/P (MAP) Pulse Ox O2 Delivery O2 Flow Rate FiO2 06/12/24 13:04 68 162/73 06/12/24 12:25 97.8 18 97 97.8 06/12/24 11:49 Room Air 97 06/12/24 07:50 0 Total Intake and Output 06/11/24 06/11/24 06/12/24 15:00 23:00 07:00 Intake Total 250 ml 0 ml Output Total 400 ml 0 ml Balance -400 ml 250 ml 0 ml medications Current Medications Medications Dose Ordered Sig/Hilary Route Start Time Stop Time Status Last Admin Dose Admin Acetaminophen 325 mg Q4HP PRN PO 06/09/24 21:45 Acetaminophen/ Hydrocodone Bitart 1 tab Q4HP PRN PO 06/09/24 21:45 Ondansetron HCl 4 mg Q4HP PRN IV 06/09/24 21:45 Nitroglycerin 0.4 mg Q5MINP PRN SL 06/09/24 21:45 Morphine Sulfate 2 mg Q30M PRN IV 06/09/24 21:45 Sodium Chloride 1,000 ml @ 60 mls/hr [id number] IV 06/10/24 01:30 06/12/24 04:33 60 MLS/HR Pantoprazole Sodium 40 mg BID IV 06/10/24 10:00 06/12/24 08:44 40 MG Labetalol HCl 10 mg Q2HPRN PRN IV 06/11/24 22:30 06/12/24 13:04 10 MG Diagnostic Test (Pha) 1 strip ACHS 06/12/24 07:00 06/12/24 12:54 1 STRIP Insulin Human Regular HS SC 06/12/24 22:00 Insulin Human Regular AC SC 06/11/24 22:45 06/11/24 22:53 9 UNITS Dextrose 50 ml UD PRN IV 06/11/24 22:45 Ferric Sodium Gluconate Complex 110 ml @ 110 mls/hr DAILY@1200 IV 06/12/24 12:00 06/16/24 12:59 06/12/24 12:46 110 MLS/HR Sucralfate 1 gm BID@0600,2200 PO 06/12/24 22:00 objective General Appearance: Alert, Oriented X3, Cooperative, mild distress HEENT: Atraumatic, PERRLA, EOMI, Mucous membr. moist/pink Respiratory: Clear to auscultation, Normal air movement Cardiovascular: Regular rate, Normal S1, Normal S2, No murmurs Abdominal: Normal bowel sounds, Soft, No tenderness, No hepatospenomegaly, No masses Extremities: No clubbing, No cyanosis, No edema, Normal pulses, No tenderness/swelling Skin: No rashes, No breakdown, No significant lesion Neuro: Normal speech, Strength at 5/5 X4 ext, Normal tone, Sensation intact Psych/Mental Status: Mental status NL, Mood NL laboratory and microbiology Laboratory Tests 06/12/24 13:36 Test 06/12/24 13:36 Range/Units Serum Glucose 121 H 74-106 mg/dL Assessment/Plan Assessment and plan: 1. End-stage renal disease. HD TTS 2. Severe anemia GI consult. KEYA and iron for goal Hb 10-11 gr/dl. 3. GI bleed. 4. Diabetes is well controlled. 5. Hypertension Cleared from Nephrology standpoint to be discharged tomorrow after dialysis. If discharged today she will go to her usual dialysis Saturday. Thank you very much for allowing us to participate in the care of this patient Plan discussed with: Patient ZHANNA WASHBURN MD Jun 12, 2024 15:39
[2024-06-12] MEDS: MORPHINE SULFATE INJ 2 MG/ml SYRG IV PRN (22:31)
[2024-06-13] VITALS (10 sets, daily range): BP systolic 127–187; BP diastolic 53–87; PULSE 57–82; RESP 16–20; TEMP 97.7–98.5; O2SAT 96–100
[2024-06-13] MEDS: SUCRALFATE 1 GM/10 ML ORAL SUSP PO SCH (00:12)
[2024-06-13] MEDS: InsuLIN REG 1unit/0.01ml Soln (100units/ml) SC SCH (00:24)
[2024-06-13 07:27] LABS: Basophils # (auto) 0 10 ^3/uL (0-0.2); Basophils % (auto) 0.5 % (0.0-2.0); Eosinophils # (auto) 0.8 10 ^3/uL (0-0.8); Eosinophils % (auto) 12.4 % (0.0-7.0); Hematocrit 26.2 % (36.0-46.0); Hemoglobin 8.7 g/dL (12.2-16.2); Lymphocytes % (auto) 17.2 % (10.0-50.0); Mean Corpuscular Hemoglobin 28.6 pg (28.0-32.0); Mean Corpuscular Volume 86.7 fL (80.0-100.0); Monocytes # (auto) 0.3 10 ^3/uL (0-1.3); Neutrophils # (auto) 3.9 10 ^3/uL (1.6-8.6); Neutrophils % (auto) 64.9 % (37.0-80.0); Nucleated Red Blood Cells % 0.1 %; Platelet Count (auto) 213 10^3/uL (140-450); Red Blood Cells 3.03 10^6/uL (4.0-5.20); Red Cell Distribution Width 18.5 % (11.8-14.3); White Blood Cell 6.1 10^3/uL (4.4-10.8)
[2024-06-13 07:40] LABS: Alanine Aminotransferase 11 U/L (7-40); Albumin 3.8 g/dL (3.2-4.8); Alkaline Phosphatase 66 U/L (46-116); Anion Gap 8 (5-15); Aspartate Aminotransferase 9 U/L (13-40); BUN/Creatinine Ratio 3.2 (10.0-20.0); Blood Urea Nitrogen 18 mg/dL (9-23); Carbon Dioxide 28 mmol/L (20-31); Chloride 109 mmol/L (98-107); Glucose 100 mg/dL (74-106); Magnesium 2.1 mg/dL (1.6-2.6); Potassium 3.4 mmol/L (3.5-5.1); Sodium 145 mmol/L (136-145)
[2024-06-13 07:41] LABS: Bilirubin, Total 0.2 mg/dL (0.2-1.0); Total Protein 5.9 g/dL (5.7-8.2)
[2024-06-13] MEDS: ASPirin 81 mg TAB PO SCH (09:18)
[2024-06-13] MEDS: CLOPIDOGREL BISULFATE 75 MG TAB PO SCH (09:19)
[2024-06-13] MEDS: POTASSIUM CHL 20 Meq TABLET PO STA (09:40)
--- NOTE | 2024-06-13 13:19 | DVHPN2 ---
Progress Note - Dictate Date Seen: Jun 13, 2024 Medical Necessity Reason Pt with a Central, PICC or Fol: No Subjective Patient is feeling well and she wants to go home vital signs Vital Sign Date Time Temp Pulse Resp B/P (MAP) Pulse Ox O2 Delivery O2 Flow Rate FiO2 06/13/24 09:00 97.7 71 18 127/76 (93) 97 97.7 06/13/24 08:05 Room Air* 0 21 Total Intake and Output 06/12/24 06/12/24 06/13/24 15:00 23:00 07:00 Intake Total 110 ml 1080 ml 1000 ml Balance 110 ml 1080 ml 1000 ml medications Current Medications Medications Dose Ordered Sig/Hilary Route Start Time Stop Time Status Last Admin Dose Admin Acetaminophen 325 mg Q4HP PRN PO 06/09/24 21:45 Acetaminophen/ Hydrocodone Bitart 1 tab Q4HP PRN PO 06/09/24 21:45 Ondansetron HCl 4 mg Q4HP PRN IV 06/09/24 21:45 Nitroglycerin 0.4 mg Q5MINP PRN SL 06/09/24 21:45 Morphine Sulfate 2 mg Q30M PRN IV 06/09/24 21:45 06/12/24 22:31 2 MG Pantoprazole Sodium 40 mg BID IV 06/10/24 10:00 06/13/24 09:42 40 MG Labetalol HCl 10 mg Q2HPRN PRN IV 06/11/24 22:30 06/12/24 13:04 10 MG Diagnostic Test (Pha) 1 strip ACHS 06/12/24 07:00 06/13/24 11:50 1 STRIP Insulin Human Regular HS SC 06/12/24 22:00 06/13/24 00:24 4 UNITS Insulin Human Regular AC SC 06/11/24 22:45 06/13/24 11:55 2 UNITS Dextrose 50 ml UD PRN IV 06/11/24 22:45 Ferric Sodium Gluconate Complex 110 ml @ 110 mls/hr DAILY@1200 IV 06/12/24 12:00 06/16/24 12:59 06/13/24 12:09 110 MLS/HR Sucralfate 1 gm BID@0600,2200 PO 06/12/24 22:00 06/13/24 05:49 1 GM Aspirin 81 mg DAILY PO 06/13/24 10:00 06/13/24 09:18 81 MG Clopidogrel Bisulfate 75 mg DAILY PO 06/13/24 10:00 06/13/24 09:19 75 MG objective General Appearance: Alert, Oriented X3, Cooperative, mild distress HEENT: Atraumatic, PERRLA, EOMI, Mucous membr. moist/pink Respiratory: Clear to auscultation, Normal air movement Cardiovascular: Regular rate, Normal S1, Normal S2, No murmurs Abdominal: Normal bowel sounds, Soft, No tenderness, No hepatospenomegaly, No masses Extremities: No clubbing, No cyanosis, No edema, Normal pulses, No tenderness/swelling Skin: No rashes, No breakdown, No significant lesion Neuro: Normal speech, Strength at 5/5 X4 ext, Normal tone, Sensation intact Psych/Mental Status: Mental status NL, Mood NL laboratory and microbiology Laboratory Tests 06/13/24 06:23 Test 06/13/24 06:23 Range/Units Serum Glucose 100 74-106 mg/dL Assessment/Plan Assessment and plan: 1. End-stage renal disease. HD TTS 2. Blood loss and end-stage renal disease. KEYA and iron for goal Hb 10-11 gr/dl. 3. GI bleed. 4. Diabetes is well controlled. 5. Hypertension Plan: HD today. Continue TTS dialysis and outpatient. She can be discharged home from Nephrology perspective post dialysis today Iron IV [place] for goal hemoglobin 10-11 Thank you very much for allowing us to participate in the care of this patient Plan discussed with: Patient ZHANNA WASHBURN MD Jun 13, 2024 13:19
--- NOTE | 2024-06-13 16:22 | DVHPNRES ---
Progress Note Date Seen: Jun 13, 2024 Resident Creating Document: SHRADDHA HERNANDEZ RESIDENT Medical Necessity Reason Pt with a Central, PICC or Fol: No Subjective Review of Systems Patient is 64 years old female with past medical history not limited to ESRD on hemodialysis 3 times per week, coronary artery disease, status post PTCA x1 in April 28, 2024, on dual antiplatelet aspirin plus clopidogrel, history of stroke x6, hypertension, hyperlipidemia, diabetes mellitus type 2, congestive heart failure, gout, hypothyroidism, status post thyroid removal, history of right upper extremity DVT came with a complaint of bleeding per rectum and black tarry colored stool and generalized weakness. As per patient she lives in [place] and came to [place] 9 days before. After arrival patient started having bleeding per rectum for 2 days followed by black tarry colored stool and diarrhea. Patient also reported she had chest pain, central in nature, no radiation, 10/10, pressure-like. Patient also reported feeling generalized weakness, dizziness, confused following bleeding per rectum and diarrhea. On further inquiry patient and her family reported that she was feeling confused, slurring of speech, and swelling of her body. Already had 2 round of hemodialysis in [place] in [facility]. Patient denied any fever, trauma stoma, acute joint pain or swelling, dysuria. EKG revealed ventricular premature complex, no acute ST elevation. Initial lab workup revealed severe anemia with hemoglobin 5.7, status post 2 units of blood transfusion, serum creatinine 5.29> 6.15, potassium 3.8, HGB A1c less than 4, troponin I 7> 7> 8, BNP 152.56, TSH 0.7, FT4 0.97, FT3 1.83 INR 1.08,. Occult blood test positive. Still poor shiga toxin negative. Patient had 2 units of blood transfusion after arrival. CXR-Mild cardiomegaly with pulmonary vascular congestion and possible trace bilateral pleural effusions. CT head- No acute intracranial hemorrhage. Small 8.24 mm dural based calcification posterior right parietal lobe. May represent a small granuloma or dural-based meningioma. CT abdomen There is no acute process in the abdomen and pelvis. Several nonspecific subtle hypodense splenic nodules measuring up to 1.5 cm. Further evaluation with MRI abdomen with contrast is recommended. Small hiatal hernia. Echo 2D revealed-Normal left ventricular size and dimension. Normal left ventricular systolic function estimated ejection fraction 55%. There is a grade 1 diastolic dysfunction, Normal normal right ventricular size and dimension. Normal right ventricular systolic function. PMH- ESRD on hemodialysis 3 times per week, coronary artery disease, status post PTCA x1 in April 28, 2024, history of stroke x6, hypertension, hyperlipidemia, diabetes mellitus type 2, congestive heart failure, gout, Hypothyroidism, status post thyroid removal, history of right upper extremity DVT PSH- surgery right clavicle, fistula on right arm Allergy- NKDA Personal History/ Social History- [place] with son, ex-smoker, ex alcoholic, no drug abuser as per patient Patient was seen today at the bedside. Patient reports feeling better today but still feeling tired Cardiovascular- deny acute chest pain or shortness of breath or cough or palpitation Respiratory- denies cough or short of breath or wheezing Musculoskeletal-denies acute joint swelling or tenderness or redness Neurological- denies acute dysarthria, dysphagia, change in vision Psychiatry- denies depression or SI or HI Skin- denies acute rash or purpura Patient was seen today for clinical evaluation. Labs and chart reviewed. Patient is due for hemodialysis today. Patient reports feeling better. Plan is to discharge patient tomorrow. Patient's hemoglobin stable, on 06/13/2024 hemoglobin level 8.7. Hypokalemia, patient is a 0.4, replenish. Objective vital signs Vital Sign Date Time Temp Pulse Resp B/P (MAP) Pulse Ox O2 Delivery O2 Flow Rate FiO2 06/13/24 09:00 97.7 71 18 127/76 (93) 97 97.7 06/13/24 08:05 Room Air* 0 21 Total Intake and Output 06/12/24 06/12/24 06/13/24 15:00 23:00 07:00 Intake Total 110 ml 1080 ml 1000 ml Balance 110 ml 1080 ml 1000 ml medications Current Medications Medications Dose Ordered Sig/Hilary Route Start Time Stop Time Status Last Admin Dose Admin Acetaminophen 325 mg Q4HP PRN PO 06/09/24 21:45 Acetaminophen/ Hydrocodone Bitart 1 tab Q4HP PRN PO 06/09/24 21:45 Ondansetron HCl 4 mg Q4HP PRN IV 06/09/24 21:45 Nitroglycerin 0.4 mg Q5MINP PRN SL 06/09/24 21:45 Morphine Sulfate 2 mg Q30M PRN IV 06/09/24 21:45 06/12/24 22:31 2 MG Pantoprazole Sodium 40 mg BID IV 06/10/24 10:00 06/13/24 09:42 40 MG Labetalol HCl 10 mg Q2HPRN PRN IV 06/11/24 22:30 06/12/24 13:04 10 MG Diagnostic Test (Pha) 1 strip ACHS 06/12/24 07:00 06/13/24 11:50 1 STRIP Insulin Human Regular HS SC 06/12/24 22:00 06/13/24 00:24 4 UNITS Insulin Human Regular AC SC 06/11/24 22:45 06/13/24 11:55 2 UNITS Dextrose 50 ml UD PRN IV 06/11/24 22:45 Ferric Sodium Gluconate Complex 110 ml @ 110 mls/hr DAILY@1200 IV 06/12/24 12:00 06/16/24 12:59 06/13/24 12:09 110 MLS/HR Sucralfate 1 gm BID@0600,2200 PO 06/12/24 22:00 06/13/24 05:49 1 GM Aspirin 81 mg DAILY PO 06/13/24 10:00 06/13/24 09:18 81 MG Clopidogrel Bisulfate 75 mg DAILY PO 06/13/24 10:00 06/13/24 09:19 75 MG Examination General examination- awake, alert, conversant, cooperative HEENT- PEERLA, no acute nasal discharge Cardiovascular- S1-S2 audible, rate and rhythm regular, no murmur Respiratory- CTAB, no wheeze or rhonchi Gastrointestinal-nontender, bowel sound+. Nondistended Musculoskeletal-no acute joint swelling or tenderness or redness# Upper and Lower extremity- no leg edema, right arm fistula for hemodialysis Neurological- cranial nerves intact, no acute dysarthria or dysphagia Psychiatry- denies depression or SI or HI Skin- no acute rash or purpura laboratory and microbiology Laboratory Tests 06/13/24 06:23 Test 06/13/24 06:23 Range/Units Serum Glucose 100 74-106 mg/dL Microbiology Date/Time Source Procedure Growth Status 06/09/24 22:32 Stool Stool Culture - Final Complete 06/09/24 22:32 Stool Shiga Toxin I & II - Final Complete Problem List/Assessment/Plan Problem List/Assessment/Plan # Severe anemia due to GI bleeding, upper GI versus lower GI tract, on top of anemia of chronic disease -status post 2 unit blood transfusion -hemoglobin level stable- 5.4> 9.3> 8.4> 8.7> 9.3 -endoscopy revealed-Grade a erosive esophagitis. Mild gastroduodenitis with antral gastric erosions. - CT abdomen There is no acute process in the abdomen and pelvis. Several nonspecific subtle hypodense splenic nodules measuring up to 1.5 cm. Further evaluation with MRI abdomen with contrast is recommended. Small hiatal hernia. -hold aspirin and clopidogrel until source of bleeding is found out and patient hemodynamically stable, no sign and symptom of bleeding --Gastroenterology recommended for pantoprazole 40 mg p.o. daily, -Carafate 1 g p.o. q.h.s. or twice a day. - Gastroenterology also recommended that patient we will follow up with her primary care doctor in [place] to arrange outpatient elective colonoscopy. #GI bleeding, upper GI versus lower GI tract, papa on top of anemia of chronic disease --endoscopy revealed-Grade a erosive esophagitis. Mild gastroduodenitis with antral gastric erosions. --status post 2 unit blood transfusion -hemoglobin level stable, today hemoglobin 8.7. - CT abdomen There is no acute process in the abdomen and pelvis. Several nonspecific subtle hypodense splenic nodules measuring up to 1.5 cm. Further evaluation with MRI abdomen with contrast is recommended. Small hiatal hernia. Hold aspirin or clopidogrel or any blood thinner at this moment -CBC, CMP -continue pantoprazole 40 mg PO qd #Grade a erosive esophagitis. Mild gastroduodenitis with antral gastric erosions. -Gastroenterology recommended for pantoprazole 40 mg p.o. daily, -Carafate 1 g p.o. q.h.s. or twice a day. - Gastroenterology also recommended that patient we will follow up with her primary care doctor in [place] to arrange outpatient elective colonoscopy. # Chest pain, shortness of breath, generalized weakness, dizziness, confusion likely due to severe bleeding and hypotension following GI bleeding -troponin I negative, EKG no acute ST elevation, mildly elevated BNP-152 --status post 2 unit blood transfusion - CT abdomen There is no acute process in the abdomen and pelvis. Several nonspecific subtle hypodense splenic nodules measuring up to 1.5 cm. Further evaluation with MRI abdomen with contrast is recommended. Small hiatal hernia. -hold aspirin and clopidogrel until source of bleeding is found out and patient hemodynamically stable, no sign and symptom of bleeding -CBC, CMP #Coronary artery disease post PTCA x1, April 28, 2024 -hold aspirin and clopidogrel for acute GI bleeding and severe anemia -cardiology consult reviewed and appreciated -Gastroenterology recommended for pantoprazole 40 mg p.o. daily, -Carafate 1 g p.o. q.h.s. or twice a day. - Gastroenterology also recommended that patient we will follow up with her primary care doctor in [place] to arrange outpatient elective colonoscopy. #Insulin-dependent diabetes mellitus -monitor blood sugar level #Hypertension -monitor blood pressure #Dyslipidemia -monitor lipid profile # post surgical hypothyroidism, Thyroid disease -continue levothyroxine 160 mg daily #HX of CVA/TIA -history of stroke 6 times -antiplatelet on hold for now due to acute GI bleeding #ESRD on HD -patient had hemodialysis on 06/12/2024 -nephrology recommendation reviewed and appreciated -continue hemodialysis as per Nephrology recommendation -avoid nephrotoxic drugs # hiatal hernia incidental finding -no acute intervention was #Morbid obesity -patient was counseled about weight reduction, healthy diet, physical activity as tolerated # ENDOSCOPIC FINDING OF 1-2 cm sliding-type hiatal hernia with Goals of care/advance care planning; FULL CODE; discussed with the patient PUD prophylaxis: Pantoprazole DVT prophylaxis: Patient with active GI bleeding Plan discussed with Dr. Campbell,,, nursing staff, patient Total time spent on patient evaluation, chart review, assessment and plan, discussion discussion >30 minutes Plan discussed with: Patient Plan discussed with: Other (RN) My Orders My Orders Orders - SHRADDHA HERNANDEZ Procedure Category Date Status Time Aspirin Tablet PHA 06/13/24 In Process 10:00 Clopidogrel Bisulfate PHA 06/13/24 In Process (Plavix) 10:00 Consistent DIET 06/13/24 Transmitted Carb(Ccho)Diabetes Lunch Date of Service: Jun 13, 2024 Billing Provider: MINDY CAMPBELL MD Common Visit Codes: [id number] INP/OBS CARE(HIGH) SHRADDHA HERNANDEZ Jun 13, 2024 16:22 MINDY CAMPBELL MD Jun 13, 2024 20:43
--- NOTE | 2024-06-13 16:55 | DVHPN2 ---
Progress Note - Dictate Date Seen: Jun 13, 2024 Medical Necessity Reason Pt with a Central, PICC or Fol: No Subjective No new complaints Patient resting comfortably No active GI bleeding Patient is getting hemodialysis EGD findings reviewed with patient vital signs Vital Sign Date Time Temp Pulse Resp B/P (MAP) Pulse Ox O2 Delivery O2 Flow Rate FiO2 06/13/24 09:00 97.7 71 18 127/76 (93) 97 97.7 06/13/24 08:05 Room Air* 0 21 Total Intake and Output 06/12/24 06/12/24 06/13/24 15:00 23:00 07:00 Intake Total 110 ml 1080 ml 1000 ml Balance 110 ml 1080 ml 1000 ml medications Current Medications Medications Dose Ordered Sig/Hilary Route Start Time Stop Time Status Last Admin Dose Admin Acetaminophen 325 mg Q4HP PRN PO 06/09/24 21:45 Acetaminophen/ Hydrocodone Bitart 1 tab Q4HP PRN PO 06/09/24 21:45 Ondansetron HCl 4 mg Q4HP PRN IV 06/09/24 21:45 Nitroglycerin 0.4 mg Q5MINP PRN SL 06/09/24 21:45 Morphine Sulfate 2 mg Q30M PRN IV 06/09/24 21:45 06/12/24 22:31 2 MG Pantoprazole Sodium 40 mg BID IV 06/10/24 10:00 06/13/24 09:42 40 MG Labetalol HCl 10 mg Q2HPRN PRN IV 06/11/24 22:30 06/12/24 13:04 10 MG Diagnostic Test (Pha) 1 strip ACHS 06/12/24 07:00 06/13/24 11:50 1 STRIP Insulin Human Regular HS SC 06/12/24 22:00 06/13/24 00:24 4 UNITS Insulin Human Regular AC SC 06/11/24 22:45 06/13/24 11:55 2 UNITS Dextrose 50 ml UD PRN IV 06/11/24 22:45 Ferric Sodium Gluconate Complex 110 ml @ 110 mls/hr DAILY@1200 IV 06/12/24 12:00 06/16/24 12:59 06/13/24 12:09 110 MLS/HR Sucralfate 1 gm BID@0600,2200 PO 06/12/24 22:00 06/13/24 05:49 1 GM Aspirin 81 mg DAILY PO 06/13/24 10:00 06/13/24 09:18 81 MG Clopidogrel Bisulfate 75 mg DAILY PO 06/13/24 10:00 06/13/24 09:19 75 MG objective General Appearance: Alert, Oriented X3, Cooperative, No acute distress, Lungs: Clear to auscultation, Normal air movement, Other Cardiovascular: Regular rate, Normal S1, Normal S2, No murmurs, Gallops, Rubs, Other Abdomen: Normal bowel sounds, Soft, No tenderness, No hepatospenomegaly, obese laboratory and microbiology Laboratory Tests 06/13/24 06:23 Test 06/13/24 06:23 Range/Units Serum Glucose 100 74-106 mg/dL Problems(with codes): (1) Gastritis (2) Severe anemia (3) ESRD (end stage renal disease) on dialysis (4) ACS (acute coronary syndrome) Prognosis Plan Protonix 40 mg p.o. twice a day Carafate 1 g p.o. twice a day DC aspirin NSAIDs smoking alcohol Discharge planning as per hospitalist Patient will follow up with her doctor in [place] to arrange outpatient elective colonoscopy Plan discussed with: Patient RADHA BARNES MD Jun 13, 2024 16:55
[2024-06-13] MEDS: EPOETIN ALFA-EPBX 10,000 UNIT/1ML VIAL SC ONE (21:00)
[2024-06-14 01:19] VITALS: BP 160/62; PULSE 66; RESP 18; TEMP 98.9; O2SAT 100
[2024-06-14 05:00] VITALS: BP 145/87; PULSE 62; RESP 18; TEMP 98.4; O2SAT 98
[2024-06-14] MEDS: SODIUM CHL 0.9% 1000 ML BAG XX ONE (07:29)
[2024-06-14] MEDS: MELATONIN 5 MG TAB PO ONE (07:29)
[2024-06-14 08:00] VITALS: PULSE 69; PULSE 74; O2SAT 96
[2024-06-14 08:01] LABS: Anion Gap 8 (5-15); Carbon Dioxide 29 mmol/L (20-31); Chloride 105 mmol/L (98-107); Potassium 3.8 mmol/L (3.5-5.1); Sodium 142 mmol/L (136-145)
[2024-06-14 08:02] LABS: Calcium 9.8 mg/dL (8.7-10.4)
[2024-06-14 08:07] LABS: BUN/Creatinine Ratio 2.2 (10.0-20.0); Blood Urea Nitrogen 11 mg/dL (9-23); Glucose 105 mg/dL (74-106)
--- NOTE | 2024-06-14 08:30 | ECG ---
[facility] Test Date: 2024-06-12 Test Time: 22:52:46 Pat Name: KAMILA ROMERO Department: Room: 0292T B Gender: F Ring Conductor: ROSELYN : 1960 Requested By: LIZETTE PÉREZ Order Number: [id number] Reading MD: Nikhil Posey Measurements Intervals [place] Rate: 67 P: 63 [place]: 162 QRS: 39 QRSD: 96 T: 61 QT: 443 QTc: 468 Interpretive Statements Sinus rhythm Low voltage, precordial leads Consider anterior infarct Electronically Signed On 06-15-2024 17:24:36 PST by Nikhil Posey Please click the below link to view image of tracing.
[2024-06-14 08:41] LABS: Basophils # (auto) 0.1 10 ^3/uL (0-0.2); Basophils % (auto) 0.8 % (0.0-2.0); Eosinophils % (auto) 14.5 % (0.0-7.0); Hematocrit 30.5 % (36.0-46.0); Hemoglobin 9.9 g/dL (12.2-16.2); Lymphocytes % (auto) 15.2 % (10.0-50.0); Mean Corpuscular Hemoglobin 28.2 pg (28.0-32.0); Mean Corpuscular Hgb Conc. 32.4 g/dL (32.0-36.0); Mean Corpuscular Volume 87.1 fL (80.0-100.0); Monocytes # (auto) 0.3 10 ^3/uL (0-1.3); Monocytes % (auto) 4.6 % (0.0-12.0); Neutrophils # (auto) 4.3 10 ^3/uL (1.6-8.6); Neutrophils % (auto) 64.9 % (37.0-80.0); Nucleated Red Blood Cells % 0.3 %; Platelet Count (auto) 231 10^3/uL (140-450); Red Cell Distribution Width 18.8 % (11.8-14.3); White Blood Cell 6.6 10^3/uL (4.4-10.8)
--- NOTE | 2024-06-14 08:51 | ECG ---
[facility] Test Date: 2024-06-12 Test Time: 22:53:30 Pat Name: KAMILA ROMERO Department: Room: 0292T B Gender: F Drugless Doctor: ROSELYN : 1960 Requested By: LIZETTE PÉREZ Order Number: [id number] Reading MD: Nikhil Posey Measurements Intervals [place] Rate: 64 P: 66 [place]: 158 QRS: 40 QRSD: 100 T: 58 QT: 457 QTc: 472 Interpretive Statements Sinus rhythm Low voltage, precordial leads Probable anterolateral infarct, old Electronically Signed On 06-15-2024 17:24:36 PST by Nikhil Posey Please click the below link to view image of tracing.
[2024-06-14 09:00] VITALS: BP 135/55; PULSE 74; RESP 18; TEMP 97.8; O2SAT 96
--- NOTE | 2024-06-14 09:06 | ECG ---
[facility] Test Date: 2024-06-11 Test Time: 04:18:10 Pat Name: KAMILA ROMERO Department: Room: 0292T B Gender: F [employer] Division Manager: ROSELYN : 1960 Requested By: LIZETTE PÉREZ Order Number: [id number] Reading MD: Nikhil Posey Measurements Intervals [place] Rate: 73 P: 58 [place]: 165 QRS: 16 QRSD: 97 T: 54 QT: 433 QTc: 478 Interpretive Statements Sinus rhythm Borderline low voltage, extremity leads Baseline wander in lead(s) V4,V5 Electronically Signed On 06-15-2024 17:24:13 PST by Nikhil Posey Please click the below link to view image of tracing.
--- NOTE | 2024-06-14 09:25 | ECG ---
[facility] Test Date: 2024-06-11 Test Time: 04:17:33 Pat Name: KAMILA ROMERO Department: Room: [facility]2T B Gender: F Costume Shop Coordinator: ROSELYN : 1960 Requested By: LIZETTE PÉREZ Order Number: [id number] Reading MD: Nikhil Posey Measurements Intervals [place] Rate: 71 P: 60 [place]: 161 QRS: 22 QRSD: 99 T: 55 QT: 438 QTc: 476 Interpretive Statements Sinus rhythm Borderline low voltage, extremity leads Baseline wander in lead(s) V5 Electronically Signed On 06-15-2024 17:24:12 PST by Nikhil Posey Please click the below link to view image of tracing.
--- NOTE | 2024-06-14 11:33 | DVHPN2 ---
Progress Note - Dictate Date Seen: Jun 14, 2024 Medical Necessity Reason Pt with a Central, PICC or Fol: No Subjective Patient is feeling well and she wants to go home vital signs Vital Sign Date Time Temp Pulse Resp B/P (MAP) Pulse Ox O2 Delivery O2 Flow Rate FiO2 06/14/24 09:00 97.8 74 18 135/55 (81) 96 97.8 06/13/24 20:00 Room Air* 0 21 Total Intake and Output 06/13/24 06/13/24 06/14/24 15:00 23:00 07:00 Intake Total 220 ml 900 ml 855 ml Balance 220 ml 900 ml 855 ml medications Current Medications Medications Dose Ordered Sig/Hilary Route Start Time Stop Time Status Last Admin Dose Admin Acetaminophen 325 mg Q4HP PRN PO 06/09/24 21:45 Acetaminophen/ Hydrocodone Bitart 1 tab Q4HP PRN PO 06/09/24 21:45 Ondansetron HCl 4 mg Q4HP PRN IV 06/09/24 21:45 Nitroglycerin 0.4 mg Q5MINP PRN SL 06/09/24 21:45 Morphine Sulfate 2 mg Q30M PRN IV 06/09/24 21:45 06/12/24 22:31 2 MG Pantoprazole Sodium 40 mg BID IV 06/10/24 10:00 06/13/24 09:42 40 MG Labetalol HCl 10 mg Q2HPRN PRN IV 06/11/24 22:30 06/12/24 13:04 10 MG Diagnostic Test (Pha) 1 strip ACHS 06/12/24 07:00 06/14/24 06:18 1 STRIP Insulin Human Regular HS SC 06/12/24 22:00 06/13/24 22:48 8 UNITS Insulin Human Regular AC SC 06/11/24 22:45 06/13/24 11:55 2 UNITS Dextrose 50 ml UD PRN IV 06/11/24 22:45 Ferric Sodium Gluconate Complex 110 ml @ 110 mls/hr DAILY@1200 IV 06/12/24 12:00 06/16/24 12:59 06/13/24 12:09 110 MLS/HR Sucralfate 1 gm BID@0600,2200 PO 06/12/24 22:00 06/14/24 06:18 1 GM Aspirin 81 mg DAILY PO 06/13/24 10:00 06/14/24 09:43 81 MG Clopidogrel Bisulfate 75 mg DAILY PO 06/13/24 10:00 06/14/24 09:43 75 MG objective General Appearance: Alert, Oriented X3, Cooperative, mild distress HEENT: Atraumatic, PERRLA, EOMI, Mucous membr. moist/pink Respiratory: Clear to auscultation, Normal air movement Cardiovascular: Regular rate, Normal S1, Normal S2, No murmurs Abdominal: Normal bowel sounds, Soft, No tenderness, No hepatospenomegaly, No masses Extremities: No clubbing, No cyanosis, No edema, Normal pulses, No tenderness/swelling Skin: No rashes, No breakdown, No significant lesion Neuro: Normal speech, Strength at 5/5 X4 ext, Normal tone, Sensation intact Psych/Mental Status: Mental status NL, Mood NL laboratory and microbiology Laboratory Tests 06/14/24 07:02 Test 06/14/24 07:02 Range/Units Serum Glucose 105 74-106 mg/dL Assessment/Plan Assessment and plan: 1. End-stage renal disease. HD TTS 2. Blood loss and end-stage renal disease. KEYA and iron for goal Hb 10-11 gr/dl. 3. GI bleed. 4. Diabetes is well controlled. 5. Hypertension Plan: HD today. Continue TTS dialysis and outpatient. Iron IV [place] for goal hemoglobin 10-11 Nephrology to be discharged home Thank you very much for allowing us to participate in the care of this patient Plan discussed with: Patient ZHANNA WASHBURN MD Jun 14, 2024 11:33
[2024-06-14 13:30] VITALS: BP 147/61; PULSE 68; RESP 19; TEMP 98; O2SAT 99
[2024-06-14] MEDS ORDERED: PANT40T PO (14:00)
[2024-06-14] MEDS ORDERED: FERR-7 PO (14:00)
[2024-06-14] MEDS ORDERED: DOCU-94 PO (14:00)
--- NOTE | 2024-06-14 17:39 | DVHDSRES ---
Discharge Summary Date of Admission Resident Creating Document: AIMEE BALL RESIDENT Jun 09, 2024 at 21:35 Date of Discharge: Jun 14, 2024 Admitting Diagnosis Severe anemia likely due to GI bleeding Wounds: No wounds present at this time. Labs/Diagnostic Data: Laboratory Results Test 06/14/24 07:02 06/14/24 06:20 06/13/24 06:27 06/13/24 06:23 White Blood Count 6.6 10^3/uL (4.4-10.8) Red Blood Count 3.50 10^6/uL (4.0-5.20) Hemoglobin 9.9 g/dL (12.2-16.2) Hematocrit 30.5 % (36.0-46.0) Mean Corpuscular Volume 87.1 fL (80.0-100.0) Mean Corpuscular Hemoglobin 28.2 pg (28.0-32.0) Mean Corpuscular Hemoglobin Concent 32.4 g/dL (32.0-36.0) Red Cell Distribution Width 18.8 % (11.8-14.3) Platelet Count 231 10^3/uL (140-450) Mean Platelet Volume 7.2 fL (6.9-10.8) Neutrophils (%) (Auto) 64.9 % (37.0-80.0) Lymphocytes (%) (Auto) 15.2 % (10.0-50.0) Monocytes (%) (Auto) 4.6 % (0.0-12.0) Eosinophils (%) (Auto) 14.5 % (0.0-7.0) Basophils (%) (Auto) 0.8 % (0.0-2.0) Neutrophils # (Auto) 4.3 10 ^3/uL (1.6-8.6) Lymphocytes # (Auto) 1.0 10 ^3/uL (0.4-5.4) Monocytes # (Auto) 0.3 10 ^3/uL (0-1.3) Eosinophils # (Auto) 1.0 10 ^3/uL (0-0.8) Basophils # (Auto) 0.1 10 ^3/uL (0-0.2) Nucleated Red Blood Cells 0.3 % Sodium Level 142 mmol/L (136-145) Potassium Level 3.8 mmol/L (3.5-5.1) Chloride Level 105 mmol/L (98-107) Carbon Dioxide Level 29 mmol/L (20-31) Anion Gap 8 (5-15) Blood Urea Nitrogen 11 mg/dL (9-23) Creatinine 4.93 mg/dL (0.550-1.02) Glomerular Filtration Rate Calc 9 mL/min (>90) BUN/Creatinine Ratio 2.2 (10.0-20.0) Serum Glucose 105 mg/dL (74-106) Calcium Level 9.8 mg/dL (8.7-10.4) POC Glucose 98 mg/dl (70-106) Magnesium Level 2.1 mg/dL (1.6-2.6) Total Bilirubin 0.2 mg/dL (0.2-1.0) Aspartate Amino Transferase (AST) 9 U/L (13-40) Alanine Aminotransferase (ALT) 11 U/L (7-40) Alkaline Phosphatase 66 U/L (46-116) Total Protein 5.9 g/dL (5.7-8.2) Albumin 3.8 g/dL (3.2-4.8) Test 06/12/24 13:36 06/12/24 07:58 06/10/24 11:10 06/09/24 23:20 Beta HCG, Quantitative 3.2 mIU/mL (1.5-4.2) Urine Color Light-yellow (Yellow) Urine Clarity Clear (Clear) Urine pH 8.0 (5.0-9.0) Urine Specific [place] 1.008 (1.001-1.035) Urine Protein 1+ (Negative) Urine Ketones Negative (Negative) Urine Blood Negative /uL (Negative) Urine Nitrite Negative (Negative) Urine Bilirubin Negative (Negative) Urine Urobilinogen Normal mg/dL (Negative) Urine Leukocyte Esterase Negative /uL (Negative) Urine RBC <1 /hpf (0 - 4) Urine WBC None seen /hpf (0 - 5) Urine Squamous Epithelial Cells Few /hpf (<5) Urine Bacteria Few /hpf (None Seen) Urine Glucose Trace mg/dL (Normal) Free Thyroxine (T4) Calculated 0.97 ng/dL (0.89-1.76) Free Triiodothyronine (T3) pg/mL 1.83 pg/mL (2.3-4.2) Prothrombin Time 11.4 sec (9.3-11.8) Prothrombin Time INR 1.08 (0.9-1.15) Activated Partial Thromboplast Time 23.9 SEC (24.5-34.5) Troponin I High Sensitivity 8 ng/L (</=34) Vitamin B12 Level 529 pg/mL (211-911) Vitamin D 25-Hydroxy 43.8 ng/mL (30.0-100) Thyroid Stimulating Hormone (TSH) 0.27 uIU/mL (0.55-4.78) Test 06/09/24 22:32 06/09/24 19:22 Stool Occult Blood Positive (Negative) Stool Occult Blood Sample #3 (Negative) Stool for White Cells None seen Hemoglobin A1c < 4.0 % A1C (<5.7) B-Type Natriuretic Peptide 152.56 pg/mL (0-100) Other Laboratory Tests 06/14/24 07:02 Brief Hx & Hospital Course: This is a 64 years old female with past medical history not limited to ESRD on hemodialysis 3 times per week, coronary artery disease, status post PTCA x1 in April 28, 2024, on dual antiplatelet aspirin plus clopidogrel, history of stroke x6, hypertension, hyperlipidemia, diabetes mellitus type 2, congestive heart failure, gout, hypothyroidism, status post thyroid removal, history of right upper extremity DVT came with a complaint of bleeding per rectum and black tarry colored stool and generalized weakness. As per patient she lives in [place] and came to [place] 9 days before. After arrival patient started having bleeding per rectum for 2 days followed by black tarry colored stool and diarrhea. Patient also reported she had chest pain, central in nature, no radiation, 10/10, described as presure type of pain. Patient also reported feeling generalized weakness, dizziness, confused following bleeding per rectum and diarrhea. The patient had 2 rounds of hemodialysis in [place] in [facility]. Patient denied any fever, trauma stoma, acute joint pain or swelling, dysuria. EKG revealed ventricular premature complex, no acute ST elevation. Initial lab workup revealed severe anemia with hemoglobin 5.7, status post 2 units of blood transfusion, serum creatinine 5.29> 6.15, potassium 3.8, HGB A1c less than 4, troponin were negative. BNP 152.56, TSH 0.7, FT4 0.97, FT3 1.83 INR 1.08,. Occult blood test was positive. Stool for shiga toxin negative. CXR- Mild cardiomegaly with pulmonary vascular congestion and possible trace bilateral pleural effusions. CT head- No acute intracranial hemorrhage. Small 8.24 mm dural based calcification posterior right parietal lobe. May represent a small granuloma or dural-based meningioma. CT abdomen There is no acute process in the abdomen and pelvis. Several nonspecific subtle hypodense splenic nodules measuring up to 1.5 cm. Further evaluation with MRI abdomen with contrast is recommended. Small hiatal hernia. Echo revealed-Normal left ventricular size and dimension. Normal left ventricular systolic function estimated ejection fraction 55%. There is a grade 1 diastolic dysfunction, Normal normal right ventricular size and dimension. Normal right ventricular systolic function. GI was consulted for possible GI bleeding in which an EGD was performed showing a 1-2 cm sliding type hiatal hernia with grade a erosive esophagitis. There was also mild gastroduodenitis with antral gastric erosions. GI recommended colonoscopy as an outpatient. Today, patient was evaluated at bedside. Hemoglobin is stable at 9.9. The patient denies fatigue or weakness at this time and states that has more energy compared to admission. We explained EGD findings in detail to the patient and we explained the importance of following up with colonoscopy as an outpatient since that might find the cause of the GI bleed. We will discharge the patient with iron tablets for 20 days and docusate to prevent constipation. We will also prescribe pantoprazole 40 mg p.o. q.d. for 20 days. Patient will follow up with her PCP in one week. Patient agrees and understands the plan and we will get schedule colonoscopy as an outpatient. ROS Constitutional: Denies weight loss, fever and chills. HEENT: Denies changes in vision and hearing. Respiratory: Denies shortness of breath and cough Cardiovascular: Denies chest discomfort or palpitations GI: Denies abdominal pain, nausea, vomiting and diarrhea. : Denies dysuria and urinary frequency. Musculoskeletal: Denies myalgias and joint pain Skin: Denies rash and pruritus. Neurological: Denies dizziness, headache, vision or hearing problems Physical Examination General: Patient alert and oriented in person, place and time. Patient following commands. HEENT: Normocephalic, atraumatic, moist mucous membranes Respiratory/pulmonary: Clear lungs bilateral, no associated crackles or wheezes. Cardiovascular: Normal heart sounds S1 and S2 with no associated murmurs Abdomen: Abdomen nondistended, there is no pain to palpation in any of the abdominal quadrants, no palpable masses. Extremities: There is no peripheral edema present at the lower extremities. Peripheral Pulses: 3+ Radial (R). 3+ Radial (L). 3+ Dorsalis pedis (R). 3+ Dorsalis pedis(L) Skin: No rashes or pruritus, there is no sacral edema present at this time. Neurological: Intact cranial nerves with no focal neurologic deficits Consults/Reason for consult GI for possible lower GI bleed Operations or Procedures CHEST RADIOGRAPH Indication:sob Technique: Single frontal view of the chest was obtained Comparison: None FINDINGS: Lines and Tubes: None Lungs: No focal consolidation. Mild interstitial prominence. Suture material is noted over the right lower lung zone. Indistinctness of bilateral hemidiaphragm. Pleura: No effusion. No pneumothorax. Cardiomediastinal contours: Mild cardiomegaly. Bones: No acute osseous abnormality. Chronic resorption of the right distal clavicle. Surgical clips are noted over the right lower neck. IMPRESSION: Mild cardiomegaly with pulmonary vascular congestion and possible trace bilateral pleural effusions. EXAM: CT HEAD WITHOUT CONTRAST INDICATION: ams, slurred speech TECHNIQUE: CT of the head without intravenous contrast. Radiation Dose Information: CT Dose: CTDI volume is 58.08 mGy. Dose-length product is 930.95 mGy*cm The dose indicators for CT are the volume Computed Tomography (CT) Dose Index (CTDIvol) and the Dose Length Product (DLP), and are measured in units of mGy and mGy-cm, respectively. These indicators are not patient dose, but values generated from the CT scanner acquisition factors. The report includes radiation exposure data for exposures received during this examination. COMPARISON: None FINDINGS: There is no evidence of acute intracranial hemorrhage, extra-axial collection, mass effect, midline shift, herniation or hydrocephalus. 8.24 mm dural-based calcification posterior right parietal lobe. Can not exclude small meningioma. The ventricles, sulci and cisterns are age appropriate. The cahvez-white differentiation is intact. Patchy periventricular and subcortical white matter hypoattenuation is nonspecific but may be related to small vessel ischemic disease. The visualized paranasal sinuses and mastoid air cells are clear. The surrounding soft tissues and osseous structures are unremarkable. IMPRESSION: 1. No acute intracranial hemorrhage. 2. Small 8.24 mm dural based calcification posterior right parietal lobe. May represent a small granuloma or dural-based meningioma. CT ABDOMEN AND PELVIS WITHOUT CONTRAST CLINICAL HISTORY: possible lower GI bleeding TECHNIQUE: Multidetector CT of the abdomen was performed from lung bases to pubic symphysis. Imaging was performed without IV contrast. Axial, coronal and sagittal multiplanar reformats were obtained from the axial data set by the technologist. Radiation optimization: All CT scans at this facility use at least one of these dose optimization techniques: automated exposure control mA and/or kV adjustment per patient size (includes targeted exams where dose is matched to clinical indication) or iterative reconstruction. Radiation Dose Information: CT Dose: CTDI volume is 23.67 mGy. Dose-length product is 1350.05 mGy*cm Comparison: None FINDINGS: Evaluation of the abdominal viscera is limited without intravenous contrast. There are several nonspecific subtle hypodense splenic nodules measuring 1.2 cm and 1.5 cm. The liver, gallbladder, pancreas, kidneys, adrenal glands, appear within normal limits. There is no gross evidence of abdominal lymphadenopathy. There is no free fluid or free air. The small and large bowel loops demonstrate normal caliber. There are no pericolonic inflammatory changes. Normal appearing appendix is seen in the right lower quadrant abdomen. There is a small hiatal hernia. The stomach otherwise appears grossly unremarkable. There are calcified atherosclerotic changes in the abdominal aorta. The IVC appears within normal limits. The bladder appears unremarkable. The uterus appears within normal limits. There is no evidence of a pelvic mass or lymphadenopathy. There is no free fluid collection. There is pleural-parenchymal scarring in the bilateral lung bases. There is no acute osseous abnormality. IMPRESSION: 1. There is no acute process in the abdomen and pelvis.. 2. Several nonspecific subtle hypodense splenic nodules measuring up to 1.5 cm. Further evaluation with MRI abdomen with contrast is recommended. 3. Small hiatal hernia. Condition at Discharge: Stable Final Diagnosis/Problems List Severe anemia due to GI bleeding likely lower GI tract Acute GI bleeding likely from lower GI tract Grade a erosive esophagitis. Mild gastroduodenitis with antral gastric erosions. Acute gen weakness likely due to severe bleeding and hypotension following GI bleeding Coronary artery disease post PTCA x1 Insulin-dependent diabetes mellitus Hypertension Dyslipidemia post surgical hypothyroidism, Thyroid disease HX of CVA/TIA ESRD on HD hiatal hernia incidental finding Morbid obesity Discharge Disposition: Home Discharge Instruct/Medications Diet: Regular Activity: No Restrictions, As Tolerated Follow Up/Referral: F/U with her PCP in 1 week Schedule colonoscopy as outpatient Medications: Iron tabs 325mg QD for 20 days Docusate 100mg QD PO for 20 days Pantoprazole 40mg QD for 20 days Discharge Statement: "Patient was advised to return to the ER or call 911 if any headaches, dizziness, shortness of breath, chest pain, abdominal pain, bleeding, fevers, or worsening of medical condition. Patient was counseled about treatment plan, medications, possible side effects, patientverbalized understanding. All questions were answered to the best of my ability. This discharge took greater then 30 minutes in planning, reviewing documentation, counseling the patient, and discussing with other team members." ASSESSMENT ASSESSMENT Assessment Severe anemia due to GI bleeding likely lower GI tract Acute GI bleeding likely from lower GI tract Grade a erosive esophagitis. Mild gastroduodenitis with antral gastric erosions. Acute gen weakness likely due to severe bleeding and hypotension following GI bleeding Coronary artery disease post PTCA x1 Insulin-dependent diabetes mellitus Hypertension Dyslipidemia post surgical hypothyroidism, Thyroid disease HX of CVA/TIA ESRD on HD hiatal hernia incidental finding Morbid obesity Date of Service: Jun 14, 2024 Billing Provider: MINDY DALEY MD Common Visit Codes: 31298-CZN/OBS DISCH DAY >30min AIMEE BALL RESIDENT Jun 14, 2024 17:39 MINDY DALEY MD Jun 15, 2024 21:59
--- NOTE | 2024-06-14 20:44 | DVHPN2 ---
Progress Note - Dictate Date Seen: Jun 14, 2024 (Late entryPatient seen at 2:00 p.m.) Medical Necessity Reason Pt with a Central, PICC or Fol: No Subjective No new complaints Patient resting comfortably No active GI bleeding EGD findings reviewed with patient vital signs Vital Sign Date Time Temp Pulse Resp B/P (MAP) Pulse Ox O2 Delivery O2 Flow Rate FiO2 06/14/24 13:30 98.0 68 19 147/61 (89) 99 98.0 06/14/24 08:00 Room Air* 0 21 Total Intake and Output 06/13/24 06/13/24 06/14/24 15:00 23:00 07:00 Intake Total 220 ml 900 ml 855 ml Balance 220 ml 900 ml 855 ml objective General Appearance: Alert, Oriented X3, Cooperative, No acute distress, Lungs: Clear to auscultation, Normal air movement, Other Cardiovascular: Regular rate, Normal S1, Normal S2, No murmurs, Gallops, Rubs, Other Abdomen: Normal bowel sounds, Soft, No tenderness, No hepatospenomegaly, obese laboratory and microbiology Laboratory Tests 06/14/24 07:02 Test 06/14/24 07:02 Range/Units Serum Glucose 105 74-106 mg/dL Problems(with codes): (1) Gastritis (2) Severe anemia (3) ESRD (end stage renal disease) on dialysis (4) Type 2 diabetes mellitus Prognosis Plan Protonix 40 mg p.o. twice a day Carafate 1 g p.o. twice a day DC aspirin NSAIDs smoking alcohol Discharge planning as per hospitalist Patient will follow up with her doctor in [place] to arrange outpatient elective colonoscopy Plan discussed with: Patient RADHA BARNES MD Jun 14, 2024 20:44
[2024-06-15 09:17] LABS: Hepatitis B Surface Antigen Negative (Negative)
[2024-06-15 09:40] LABS: Hepatitis A Ab IgM Negative
[2024-06-15 09:41] LABS: Hepatitis B Core IgM Negative; Hepatitis C Antibody Negative (Negative)
== END 2024-06-14 16:44 | disposition home or self-care (01) | DRG 380 ==
LOC: ER 17:49 → OVERFLOW 21:35 → WEST WING 06-10 01:35 → TELE-WESTW 06-10 13:53
PROVIDERS: ADMIT Internal Medicine Geriatric Medicine; ATTEND Internal Medicine Geriatric Medicine
PROC: 30233N1 Transfusion of Nonautologous Red Blood Cells into Peripheral Vein, Percutaneous Approach (ICD-10-PCS; principal; 2024-06-10)
PROC: 5A1D70Z Performance of Urinary Filtration, Intermittent, Less than 6 Hours Per Day (ICD-10-PCS; 2024-06-11)
PROC: 0DB98ZX Excision of Duodenum, Via Natural or Artificial Opening Endoscopic, Diagnostic (ICD-10-PCS; 2024-06-12)
PROC: 0DB68ZX Excision of Stomach, Via Natural or Artificial Opening Endoscopic, Diagnostic (ICD-10-PCS; 2024-06-12)
PROC: 0DB48ZX Excision of Esophagogastric Junction, Via Natural or Artificial Opening Endoscopic, Diagnostic (ICD-10-PCS; 2024-06-12)
PROC: 5A1D70Z Performance of Urinary Filtration, Intermittent, Less than 6 Hours Per Day (ICD-10-PCS; 2024-06-13)
DX: K22.11 Ulcer of esophagus with bleeding (principal); N18.6 End stage renal disease; I24.9 Acute ischemic heart disease, unspecified; I13.2 Hypertensive heart and chronic kidney disease with heart failure and with stage 5 chronic kidney disease, or end stage renal disease; D62 Acute posthemorrhagic anemia; Z68.41 Body mass index [BMI] 40.0-44.9, adult; K29.91 Gastroduodenitis, unspecified, with bleeding; K25.4 Chronic or unspecified gastric ulcer with hemorrhage; K29.81 Duodenitis with bleeding; K29.71 Gastritis, unspecified, with bleeding; E11.22 Type 2 diabetes mellitus with diabetic chronic kidney disease; E03.9 Hypothyroidism, unspecified; E78.5 Hyperlipidemia, unspecified; E66.01 Morbid (severe) obesity due to excess calories; K44.9 Diaphragmatic hernia without obstruction or gangrene; F17.210 Nicotine dependence, cigarettes, uncomplicated; I25.10 Atherosclerotic heart disease of native coronary artery without angina pectoris; I50.9 Heart failure, unspecified; M10.9 Gout, unspecified; K21.9 Gastro-esophageal reflux disease without esophagitis; E11.42 Type 2 diabetes mellitus with diabetic polyneuropathy; D63.8 Anemia in other chronic diseases classified elsewhere; Z99.2 Dependence on renal dialysis; Z86.73 Personal history of transient ischemic attack (TIA), and cerebral infarction without residual deficits; Z86.718 Personal history of other venous thrombosis and embolism; Z95.5 Presence of coronary angioplasty implant and graft; Z79.4 Long term (current) use of insulin; Z82.49 Family history of ischemic heart disease and other diseases of the circulatory system; Z83.3 Family history of diabetes mellitus; Z79.82 Long term (current) use of aspirin; Z79.84 Long term (current) use of oral hypoglycemic drugs
CPT/HCPCS: 36415; 70450; 71045; 71046; 74176; 80048; 80053; 80074; 81001; 82270; 82306; 82607; 82962; 83036; 83735; 83880; 84439; 84443; 84481; 84484; 84702; 85025; 85048; 85610; 85730; 86850; 86900; 86901; 86920; 87045; 87427; 90935; 93005; 93306; G0378; J1815; J2405; J2470; J2704